=== PATIENT | female | born 1965 | race American Indian/Alaskan Native ===

== ENCOUNTER 2017-01-09 18:40 | Inpatient (IN) | payer BC ==
[2017-01-09 19:52] LABS: Basophils % (Auto) 0.6 % (0.0-1.8); Eosinophils % (Auto) 1.9 % (0.0-4.3); Hematocrit 30.9 % (30.3-42.9); Hemoglobin 10.8 gm/dl (10.1-14.3); Mean Corpuscular HGB Conc 35 % (30-34); Mean Corpuscular Hemoglobin 30 pg (28-32); Mean Corpuscular Volume 85 fl (79-97); Platelet Count 167 K/mm3 (140-440); Red Blood Count 3.64 M/mm3 (3.65-5.03); Red Cell Distribution Width 13.8 % (13.2-15.2); White Blood Count 6.9 K/mm3 (4.5-11.0)
[2017-01-09 19:55] LABS: Bilirubin,Urine NEG (Negative); Blood,Urine NEG (Negative); Ketones,Urine NEG (Negative); Leukocyte Esterase,Urine TR (Negative); Mucus,Urine FEW /HPF; Nitrite,Urine NEG (Negative); Urobilinogen,Urine < 2.0 mg/dL (<2.0)
[2017-01-09 20:06] LABS: BUN/Creatinine Ratio 17.85; Calcium 9.3 mg/dL (8.4-10.2); Chloride 97.1 mmol/L (98-107); Potassium 4.1 mmol/L (3.6-5.0)
--- NOTE | 2017-01-10 07:26 | Emergency Department Report ---
ED General Adult HPI - General Chief complaint: Wound/Laceration Stated complaint: RT FOOT SWOLLEN DIABETIC TYPE 2 Time Seen by Provider: 01/10/17 07:08 Source: patient Mode of arrival: Ambulatory Limitations: No Limitations - History of Present Illness Initial comments: Patient states that she has been having problems with her right fifth toe for 1 day. She tells me she is distraught with the overnight weight. She states that she will not be admitted to this hospital because of that. I apologized to her for the wait. Apparently she does not have a doctor in the area. She is an insulin-dependent diabetic and has recently moved here. She states that she has bumped her right great toe had an x-ray and determined that that was not broken. Both her great toes appear to have some cuticle all or nail work. The left great toe has the nail removed and the right has some ingrown area apparently worked on. Her current problem involves her left small toe only. She denies fever or chills. She denies purulent drainage or fever or chills. She's had no trauma to that toe. -: Gradual, hour(s) Location: left, lower extremity Radiation: non-radiation Quality: aching Consistency: intermittent Improves with: none Worsens with: none Associated Symptoms: denies other symptoms - Related Data Previous Rx's Medication Instructions Recorded Last Taken Type Clindamycin [Clindamycin CAP] 300 mg PO Q8H #20 cap 01/10/17 Unknown Rx Sulfamethoxazole/Trimethoprim 1 each PO BID #14 tablet 01/10/17 Unknown Rx [Bactrim DS TAB] Allergies Allergy/AdvReac Type Severity Reaction Status Date / Time Penicillins Allergy Anaphylaxis Verified 01/09/17 19:07 ED Review of Systems ROS: Stated complaint: RT FOOT SWOLLEN DIABETIC TYPE 2 Other details as noted in HPI Constitutional: denies: chills, fever Eyes: denies: eye pain, eye discharge, vision change ENT: denies: ear pain, throat pain Respiratory: denies: cough, shortness of breath, wheezing Cardiovascular: denies: chest pain, palpitations Endocrine: no symptoms reported Gastrointestinal: denies: abdominal pain, nausea, diarrhea Genitourinary: denies: urgency, dysuria, discharge Musculoskeletal: as per HPI. denies: back pain, joint swelling, arthralgia Skin: denies: rash, lesions Neurological: denies: headache, weakness, paresthesias Psychiatric: denies: anxiety, depression Hematological/Lymphatic: denies: easy bleeding, easy bruising ED Past Medical Hx - Past Medical History Hx Hypertension: Yes Hx Diabetes: Yes (type 2) Additional medical history: cervical cancer - Surgical History Past Surgical History?: No Additional Surgical History: leap proceedure - Social History Smoking Status: Never Smoker Substance Use Type: None - Medications Home Medications: Home Medications Medication Instructions Recorded Confirmed Last Taken Type Clindamycin [Clindamycin CAP] 300 mg PO Q8H #20 cap 01/10/17 Unknown Rx Sulfamethoxazole/Trimethoprim 1 each PO BID #14 tablet 01/10/17 Unknown Rx [Bactrim DS TAB] ED Physical Exam - General Limitations: No Limitations General appearance: alert, in no apparent distress - Head Head exam: Present: atraumatic, normocephalic - Eye Eye exam: Present: normal appearance - ENT ENT exam: Present: normal exam, mucous membranes moist - Neck Neck exam: Present: normal inspection - Respiratory Respiratory exam: Present: normal lung sounds bilaterally. Absent: respiratory distress - Cardiovascular Cardiovascular Exam: Present: regular rate, normal rhythm. Absent: systolic murmur, diastolic murmur, rubs, gallop - GI/Abdominal GI/Abdominal exam: Present: soft, normal bowel sounds. Absent: distended, tenderness, guarding, rebound - Extremities Exam Extremities exam: Present: normal inspection - Back Exam Back exam: Present: normal inspection - Neurological Exam Neurological exam: Present: alert, oriented X3, CN II-XII intact. Absent: motor sensory deficit (grossly toe sensation not tested) - Psychiatric Psychiatric exam: Present: agitated, anxious - Skin Skin exam: Present: other (there is evidence of a diabetic toe infection with some warmth and mild edema of the left foot. There is no juno gangrene. The great toe of the left foot has an avulsed nail and does not appear infected. The medial aspect of the great toe of the right foot has been trimmed. This does not look infected either.). Absent: rash ED Course Vital Signs 01/09/17 19:08 Temperature 98.4 F Pulse Rate 78 Respiratory 16 Rate Blood Pressure 154/88 O2 Sat by Pulse 100 Oximetry - Reevaluation(s) Reevaluation #1: I informed the patient that we would prefer to admit her to the hospital for treatment of a diabetic foot infection with IV antibiotics. She has declined this. She knows that her infection may get worse or even become life- threatening. She is mentally competent to sign out AMA. I will give her a prescription for Bactrim and clindamycin as she is penicillin allergic. 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 01/10/17 07:46 01/10/17 07:50 ED Medical Decision Making - Lab Data Result diagrams: 01/09/17 19:30 01/09/17 19:30 Laboratory Results - last 24 hr 01/09/17 01/09/17 01/09/17 19:18 19:20 19:30 WBC 6.9 RBC 3.64 L Hgb 10.8 Hct 30.9 MCV 85 MCH 30 MCHC 35 H RDW 13.8 Plt Count 167 Lymph % (Auto) 24.3 Eddy % (Auto) 7.9 H Eos % (Auto) 1.9 Baso % (Auto) 0.6 Lymph # 1.7 Eddy # 0.5 Eos # 0.1 Baso # 0.0 Seg Neutrophils % 65.3 Seg Neutrophils # 4.5 VBG pH Sodium Potassium Chloride Carbon Dioxide Anion Gap BUN Creatinine Estimated GFR BUN/Creatinine Ratio Glucose POC Glucose 237 H Calcium Urine Color Yellow Urine Turbidity Clear Urine pH 5.0 Ur Specific [place] 1.018 Urine Protein 100 mg/dl Urine Glucose (UA) >=500 Urine Ketones Neg Urine Blood Neg Urine Nitrite Neg Urine Bilirubin Neg Urine Urobilinogen < 2.0 Ur Leukocyte Esterase Tr Urine WBC (Auto) 6.0 Urine RBC (Auto) 4.0 U Epithel Cells (Auto) 6.0 Urine Mucus Few 01/09/17 01/09/17 01/10/17 19:30 19:30 04:36 WBC RBC Hgb Hct MCV MCH MCHC RDW Plt Count Lymph % (Auto) Eddy % (Auto) Eos % (Auto) Baso % (Auto) Lymph # Eddy # Eos # Baso # Seg Neutrophils % Seg Neutrophils # VBG pH 7.312 L Sodium 138 Potassium 4.1 Chloride 97.1 L Carbon Dioxide 26 Anion Gap 19 BUN 25 H Creatinine 1.4 H Estimated GFR 40 BUN/Creatinine Ratio 17.85 Glucose 248 H POC Glucose 250 H Calcium 9.3 Urine Color Urine Turbidity Urine pH Ur Specific [place] Urine Protein Urine Glucose (UA) Urine Ketones Urine Blood Urine Nitrite Urine Bilirubin Urine Urobilinogen Ur Leukocyte Esterase Urine WBC (Auto) Urine RBC (Auto) U Epithel Cells (Auto) Urine Mucus Critical care attestation.: If time is entered above; I have spent that time in minutes in the direct care of this critically ill patient, excluding procedure time. ED Disposition Clinical Impression: Diabetic infection of left foot, Renal insufficiency Disposition: TO HOME OR SELFCARE Is pt being admited?: No Does the pt Need Aspirin: No Condition: Stable Instructions: Diabetes Mellitus Type 2 in Adults (ED), Impaired Kidney Function (ED) Additional Instructions: I have recommended admission to the hospital for antibiotics. This is safest treatment for a diabetic foot infection. I will give you an oral antibiotics since you have declined admission. It is possible this infection could become life-threatening and close follow-up is surely required. Her kidney function is a bit slow to. That needs to be monitored. See referral physicians. Prescriptions: Clindamycin [Clindamycin CAP] 300 mg PO Q8H #20 cap Sulfamethoxazole/Trimethoprim [Bactrim DS TAB] 1 each PO BID #14 tablet Referrals: MEDARDO DE LA GARZA MD [Staff Physician] - 3-5 Days PRIMARY CAREMD [Primary Care Provider] - 24 Hours ALECIA MCDANIELS JR, MD [Staff Physician] - 24 Hours
[2017-01-10] MEDS: VANCOMYCIN/NS 1 GM/250 ML 1 GM/250 ML BAG IV SCH ×2 (08:38→22:13)
[2017-01-10] MEDS ORDERED: TYLENOL PO PRN (09:00)
[2017-01-10] MEDS ORDERED: VANCOMYCIN PHARMACY TO DOSE IV SCH (09:00)
--- NOTE | 2017-01-10 09:07 | History and Physical Report ---
History of Present Illness Date of examination: 01/10/17 Date of admission: 01/10/17 Chief complaint: Right fifth toe infection and foot swelling History of present illness: Patient is a 51-year-old female with past medical history of diabetes, diabetic neuropathy, hypertension who presents to the hospital with complaints of intermittent fever for the past 5 days initially started on Wednesday resolved on but now with right fifth toe swelling and erythema and drainage. The patient reports that on Wednesday which is 5 days prior to admission she began to sense to have foot was swollen while at work she had noted fevers and at home she documented a temperature of 102. The following that a fever was gone but she noted that on pressing on her Toe dose fluid being expressed. The next day she experienced loss of of the skin with serosanguineous fluid also expressed, with a sensation of her toe being stuck to the bed. She tried multiple times to use hydrogen peroxide to clean and keep the wound clean but considering the increased drainage and edema she presented to the hospital for follow-up management. Her blood sugar she recommends has always been unable to 270s normally. She was initially on metformin but this was discontinued when her hemoglobin A1c went above the last, she recalls is 9. She reports compliance with all her medications. She Denies any nausea vomiting or blurry vision. He reports pain to the foot area which she rates 5/10 in intensity worse with touch. ROS Constitutional: Reports fever, fatigue but no weight loss. Skin: Reports ulceration of right fifth toe. Eyes: No recent vision problems or eye pain. ENT: No congestion, ear pain, or sore throat. Endocrine: No thyroid problems. Cardiovascular: No chest pain. Respiratory: No cough, shortness of breath, congestion, or wheezing. Gastrointestinal: No abdominal pain, nausea, vomiting, or diarrhea. Genitourinary: No dysuria. Musculoskeletal: No joint swelling. Neurologic: No seizures. Hematologic: No unusual bruising or bleeding. Psychiatric: No psychiatric problems, hallucinations or depression. All other systems reviewed and otherwise negative. Past History Past Medical History: cancer (cervical), diabetes, hypertension Past Surgical History: Other (LEEP procedure. Vicryl cancer) Social history: no significant social history, full code Family history: no significant family history, diabetes Medications and Allergies Allergies Allergy/AdvReac Type Severity Reaction Status Date / Time Penicillins Allergy Anaphylaxis Verified 01/09/17 19:07 Home Medications Medication Instructions Recorded Confirmed Last Taken Type Clindamycin [Clindamycin CAP] 300 mg PO Q8H #20 cap 01/10/17 Unknown Rx Sulfamethoxazole/Trimethoprim 1 each PO BID #14 tablet 01/10/17 Unknown Rx [Bactrim DS TAB] Active Meds: Active Medications Acetaminophen (Tylenol) 650 mg PO Q4H PRN PRN Reason: Pain MILD(1-3)/Fever >100.5/MIGUEL Bisacodyl (Dulcolax) 10 mg GA QDAY PRN PRN Reason: Constipation unrelieved by [facility] Dextrose (D50w (25gm)) 50 ml IV PRN PRN PRN Reason: Hypoglycemia Gabapentin (Neurontin) 100 mg PO QHS SHELLY Cefepime HCl (Maxipime/Ns 1 Gm/100 Ml) 1 gm in 100 mls @ 200 mls/hr IV Q8HR SHELLY PRN Reason: Protocol Vancomycin HCl (Vancomycin/Ns 1 Gm/250 Ml) 1 gm in 250 mls @ 166.667 mls/hr IV Q12H [facility] Last Admin: 01/10/17 08:38 Dose: 166.667 mls/hr Insulin Aspart (Novolog) 0 units SUB-Q AC SHELLY PRN Reason: Protocol Insulin Human Isoph/Insulin Regular (Novolin 70/30) 20 unit SUB-Q BIDDIAB SHELLY Labetalol HCl (Normodyne) 100 mg PO BID SHELLY Lisinopril (Zestril) 40 mg PO DAILY SHELLY Magnesium Hydroxide (Milk Of Magnesia) 30 ml PO Q4H PRN PRN Reason: Constipation Morphine Sulfate (Morphine) 2 mg IV Q4H PRN PRN Reason: Pain, Moderate (4-6) Ondansetron HCl (Zofran) 4 mg IV Q8H PRN PRN Reason: N/V unrelieved by Reglan Vancomycin HCl (Vancomycin Pharmacy To Dose) 1 each IV PKCONSULT SHELLY PRN Reason: Protocol Exam - Physical Exam Narrative exam: VITAL SIGNS: Reviewed. GENERAL: The patient appeared well nourished and normally developed. Vital signs as documented. HEAD: No signs of head trauma. EYES: Pupils are equal. Extraocular motions intact. EARS: Hearing grossly intact. MOUTH: Oropharynx is normal. NECK: No adenopathy, no JVD. CHEST: Chest with clear breath sounds bilaterally. No wheezes, rales, or rhonchi. CARDIAC: Regular rate and rhythm. S1 and S2, without murmurs, gallops, or rubs. VASCULAR: 2+ pitting edema right foot. Peripheral pulses normal and equal in all extremities. ABDOMEN: Soft, without detectable tenderness. No sign of distention. No rebound or guarding, and no masses palpated. Bowel Sounds normal. MUSCULOSKELETAL: Good range of motion of all major joints. Extremities without clubbing, cyanosis. 2+ Edema Right Foot. NEUROLOGIC EXAM: Alert and oriented x 3. No focal sensory or strength deficits. Speech normal. Follows commands. PSYCHIATRIC: Mood normal. SKIN: Diabetic toe infection with warmth and edema of the right foot, great toe of the right foot is some false. Left toenail with excoriations.. - Constitutional Vitals: Temp Pulse Resp BP Pulse Ox 98.4 F 78 16 154/88 100 01/09/17 19:08 01/09/17 19:08 01/09/17 19:08 01/09/17 19:08 01/09/17 19:08 Results - Labs CBC & Chem 7: 01/09/17 19:30 01/09/17 19:30 Labs: Laboratory Last Values WBC 6.9 K/mm3 (4.5-11.0) 01/09/17 19:30 RBC 3.64 M/mm3 (3.65-5.03) L 01/09/17 19:30 Hgb 10.8 gm/dl (10.1-14.3) 01/09/17 19:30 Hct 30.9 % (30.3-42.9) 01/09/17 19:30 MCV 85 fl (79-97) 01/09/17 19:30 MCH 30 pg (28-32) 01/09/17 19:30 MCHC 35 % (30-34) H 01/09/17 19:30 RDW 13.8 % (13.2-15.2) 01/09/17 19:30 Plt Count 167 K/mm3 (140-440) 01/09/17 19:30 Lymph % (Auto) 24.3 % (13.4-35.0) 01/09/17 19:30 Hart % (Auto) 7.9 % (0.0-7.3) H 01/09/17 19:30 Eos % (Auto) 1.9 % (0.0-4.3) 01/09/17 19:30 Baso % (Auto) 0.6 % (0.0-1.8) 01/09/17 19:30 Lymph # 1.7 K/mm3 (1.2-5.4) 01/09/17 19:30 Hart # 0.5 K/mm3 (0.0-0.8) 01/09/17 19:30 Eos # 0.1 K/mm3 (0.0-0.4) 01/09/17 19:30 Baso # 0.0 K/mm3 (0.0-0.1) 01/09/17 19:30 Seg Neutrophils % 65.3 % (40.0-70.0) 01/09/17 19:30 Seg Neutrophils # 4.5 K/mm3 (1.8-7.7) 01/09/17 19:30 VBG pH 7.312 (7.320-7.420) L 01/09/17 19:30 Sodium 138 mmol/L (137-145) 01/09/17 19:30 Potassium 4.1 mmol/L (3.6-5.0) 01/09/17 19:30 Chloride 97.1 mmol/L (98-107) L 01/09/17 19:30 Carbon Dioxide 26 mmol/L (22-30) 01/09/17 19:30 Anion Gap 19 mmol/L 01/09/17 19:30 BUN 25 mg/dL (7-17) H 01/09/17 19:30 Creatinine 1.4 mg/dL (0.7-1.2) H 01/09/17 19:30 Estimated GFR 40 ml/min 01/09/17 19:30 BUN/Creatinine Ratio 17.85 % 01/09/17 19:30 Glucose 248 mg/dL (65-100) H 01/09/17 19:30 POC Glucose 250 (70-105) H 01/10/17 04:36 Calcium 9.3 mg/dL (8.4-10.2) 01/09/17 19:30 Urine Color Yellow (Yellow) 01/09/17 19:20 Urine Turbidity Clear (Clear) 01/09/17 19:20 Urine pH 5.0 (5.0-7.0) 01/09/17 19:20 Ur Specific [place] 1.018 (1.003-1.030) 01/09/17 19:20 Urine Protein 100 mg/dl mg/dL (Negative) 01/09/17 19:20 Urine Glucose (UA) >=500 mg/dL (Negative) 01/09/17 19:20 Urine Ketones Neg mg/dL (Negative) 01/09/17 19:20 Urine Blood Neg (Negative) 01/09/17 19:20 Urine Nitrite Neg (Negative) 01/09/17 19:20 Urine Bilirubin Neg (Negative) 01/09/17 19:20 Urine Urobilinogen < 2.0 mg/dL (<2.0) 01/09/17 19:20 Ur Leukocyte Esterase Tr (Negative) 01/09/17 19:20 Urine WBC (Auto) 6.0 /HPF (0.0-6.0) 01/09/17 19:20 Urine RBC (Auto) 4.0 /HPF (0.0-6.0) 01/09/17 19:20 U Epithel Cells (Auto) 6.0 /HPF (0-13.0) 01/09/17 19:20 Urine Mucus Few /HPF 01/09/17 19:20 - Imaging and Cardiology Imaging and Cardiology: X-ray of the foot reviewed reports pending. Assessment and Plan Assessment and plan: Patient is a 51-year-old female with past medical history of diabetes, diabetic neuropathy, hypertension who presents to the hospital with complaints of intermittent fever for the past 5 days with right fifth toe diabetic wound infection. Also known to have a baseline blood sugar in the 260 disease Diabetic foot infection Right lower ext cellulitis Sepsis secondary to above- Pt reports fever of 102 at home Hypertension Diabetic Nephropathy Uncontrolled DM with Hyperglycemia WALT possible secondary to ATN, Diabetic Nephropathy Plan * Supportive care, IV fluids * Continue Empiric Abx With Cefepime and Vancomycin. Monitor Vancomycin trough * Wound care and culture * Urinalysis, check for proteinuria * Monitor BMP * Continue Lisinopril and labetalol, Gabapentin. Will discontinue Lisinopril if Creatnin worsens. * Pain control. * Patient on discharge will definitely need better diabetic management. Also advised a podiatry evaluation for shoe modifications. * DVT and GI prophylaxis * Plan of care discussed with the patient in detail Advance Directives: Yes Plan of care discussed with patient/family: Yes
[2017-01-10] MEDS ORDERED: ZESTRIL ONE (09:31)
[2017-01-10] MEDS ORDERED: NORMODYNE ONE (09:31)
[2017-01-10] MEDS: ZESTRIL PO SCH (09:33)
[2017-01-10] MEDS: NORMODYNE PO SCH ×2 (09:33→22:12)
--- NOTE | 2017-01-10 09:53 | XRay Report ---
RIGHT FOOT, 2 VIEWS History: Pain and ulceration on fifth toe. Findings: No definite soft tissue ulceration is appreciated on x-ray. No soft tissue gas or foreign body. The bony structures are intact. Minimal degenerative changes are noted in the midfoot. Moderate plantar spur. Impression: Unremarkable exam.
[2017-01-10] MEDS ORDERED: MILK OF MAGNESIA PO PRN (10:00)
[2017-01-10] MEDS ORDERED: D50W (25GM) IV PRN (10:00)
[2017-01-10] MEDS ORDERED: ZOFRAN IV PRN (10:00)
[2017-01-10] MEDS ORDERED: MORPHINE IV PRN (10:00)
[2017-01-10] MEDS ORDERED: DULCOLAX PR PRN (10:00)
[2017-01-10] MEDS ORDERED: NACL 0.9% 1000 ML 1,000 ML IV SCH (10:00)
[2017-01-10] MEDS: MAXIPIME/NS 1 GM/100 ML 1 GM/100 ML BAG IV SCH ×3 (11:12→22:12)
[2017-01-10] MEDS: NOVOLOG SUB-Q SCH ×2 (12:39→17:52)
[2017-01-10] MEDS ORDERED: BENADRYL IV PRN (19:37)
[2017-01-10] MEDS ORDERED: NEURONTIN PO SCH (22:00)
[2017-01-10] MEDS ORDERED: APRESOLINE IV PRN (22:17)
--- NOTE | 2017-01-11 03:48 | Admit Criteria Form ---
Admission Criteria Documentation: CELLULITIS Clinical Indications for Admission to Inpatient Care (Place 'X' for any and all applicable criteria): Admission is indicated for ANY ONE of the following(1)(2)(3)(4)(5): [ ]I. Limb-threatening infection [X ]II. High-risk comorbid condition as indicated by ANY ONE of the following: [X ]a) Uncontrolled diabetes (eg, HbA1c greater than 10% (0.1)) [ ]b) Cirrhosis [ ]c) Neutropenia [ ]d) Asplenia [ ]e) Immunosuppression [ ]f) Symptomatic heart failure [ ]III. Failure of outpatient therapy as indicated by ALL of the following: [ ]a) Progression or no improvement after adequate trial (minimum of 48 hours, with longer period for stable lower extremity infection) [ ]b) Adequate antibiotic regimen as indicated by use of ANY ONE of the following: [ ]i) First-generation cephalosporin (e.g., cephalexin) [ ]ii) Antistaphylococcal penicillin (e.g., dicloxacillin) [ ]iii) Penicillin-allergic patient regimen (clindamycin, extended-spectrum fluoroquinolone, or doxycycline) [ ]iv) Resistant organism (eg, methicillin-resistant Staphylococcus aureus) regimen (6) [ ]c) Outpatient intravenous therapy regimen is not appropriate due to ANY ONE of the following. (7)(8)(9)(10): [ ]i) It was tried and was not successful (eg, progression of infection). [ ]ii) It is not available or cannot be arranged in a clinically appropriate time frame (e.g., the next day). [ ]iii) Clinical presentation (eg, acuity of infection, rapidity of progression, confirmed or suspected bacteremia) is judged to require ALL of the following: [ ]1) Immediate initiation of intravenous therapy ( eg, cannot wait for next day) [ ]2) Intensity of patient monitoring and observation (eg, vital sign measurement, checks for infection progression) that cannot be provided at other than inpatient level of care [ ]IV. Mental status changes [ ]V. Bacteremia [ ]. Hemodynamic instability [ ]VII. Suspected necrotizing soft tissue infection (e.g., gas in tissue)(11)( 12) [ ]VIII. Orbital infection (13)(14) [ ]IX. Associated surgical procedure (e.g., abscess drainage, debridement) not amenable to outpatient, emergency department, or observation care [ ]X. Cutaneous gangrene [ ]XI. High fever (temperature greater than 39.5 degrees C (103.1 degrees F) (oral)) not responsive to outpatient, emergency department, or observation care therapy [ ]XIII. Inpatient admission required rather than observation care (Also use Cellulitis: Observation Care as appropriate) because of ANY ONE of the following : [ ]a) Periorbital or perineal infection that is severe or worsening [ ]b) Severe pain requiring acute inpatient management [ ]c) IV fluid to replace significant ongoing (e.g., for over 24 hours) losses (greater than 3L/m2 per day) [ ]d) Compartment syndrome monitoring (17) [ ]e) Strict or protective (eg, laminar flow) isolation [ ]f) Urgent debridement or skin grafting [ ]g) Bone or joint debridement [ ]h) Immediate inpatient surgery [ ]i) Other condition, treatment or monitoring requiring inpatient admission Extended stay beyond goal length of stay may be needed for (1)(18): [ ]a) Necrotizing soft tissue infection or fasciitis [ ]b) Gram-negative infection [ ]c) Methicillin-resistant Staphylococcal aureus (MRSA) infection [ ]d) Peripheral venous insufficiency with cellulitis [ ]e) Extensive edema [ ]f) Sepsis or continued Hemodynamic instability [ ]g) Continued high fever or mental status change [ ]h) Bacteremia [ ]i) Active serious comorbid conditions ( eg, heart failure, renal insufficiency) The original [employer] content created by [email or web address] has been revised. The portions of the content which have been revised are identified through the use of italic text or in bold, and [facility] has neither reviewed nor approved the modified material. All other unmodified content is copyright [facility] Please see references footnoted in the original [facility] [employer] edition 2016 Admission Criteria Met: Yes
[2017-01-11] MEDS: MAXIPIME/NS 1 GM/100 ML 1 GM/100 ML BAG IV SCH ×2 (05:38→16:41)
[2017-01-11 06:40] LABS: Basophils % (Auto) 0.8 % (0.0-1.8); Eosinophils % (Auto) 3.8 % (0.0-4.3); Hematocrit 27.6 % (30.3-42.9); Hemoglobin 9.4 gm/dl (10.1-14.3); Mean Corpuscular HGB Conc 34 % (30-34); Mean Corpuscular Hemoglobin 29 pg (28-32); Mean Corpuscular Volume 86 fl (79-97); Platelet Count 143 K/mm3 (140-440); Red Blood Count 3.22 M/mm3 (3.65-5.03); Red Cell Distribution Width 13.5 % (13.2-15.2)
[2017-01-11 06:55] LABS: Anion Gap 17 mmol/L; Blood Urea Nitrogen 21 mg/dL (7-17); Calcium 8.6 mg/dL (8.4-10.2); Carbon Dioxide 25 mmol/L (22-30); Chloride 107.4 mmol/L (98-107); Glucose 167 mg/dL (65-100); Potassium 4.2 mmol/L (3.6-5.0); Sodium 145 mmol/L (137-145)
--- NOTE | 2017-01-11 09:35 | Discharge Summary ---
Providers - Providers Date of Admission: 01/10/17 08:07 Date of discharge: 01/11/17 Attending physician: GENE HENSLEY MD 01/10/17 08:57 Consult to Dietitian/Nutrition [CONS] Routine Physician Instructions: Reason For Exam: Reason for Consult: Diet education 01/10/17 08:58 Consult to Wound/ET Nurse [CONS] Routine Reason For Exam: wound eval Primary care physician: SHIELD INSTALLER Hospitalization Reason for admission: diabetic foot infection Condition: Stable Hospital course: Patient is a 51-year-old female with past medical history of diabetes, diabetic neuropathy, hypertension who presents to the hospital with complaints of intermittent fever for the past 5 days with right fifth toe diabetic wound infection. Also known to have a baseline blood sugar in the 260s, patient was started on vancomycin and Zosyn with no further fever or elevated leukocytosis noted hemoglobin A1c did come back to 10.1 week and advised the patient better control of blood glucose target range of 160. She'll be followed at the [facility]. She was seen by wound care was no further indication for debridement. An ultrasound of the extremity did reveal although I do not understand chronicity of this I feel this patient should be treated as she does have lower extremity swelling. We'll set him up all questions twice a day and she is to follow with vascular surgery as outpatient. We did also discuss further diabetic management and also encouraged GI evaluation for screening colonoscopy. Additionally this time is stable Discharge diagnosis Diabetic foot infection Chronic Nonocclusive right lower extremity DVT Right lower ext cellulitis Sepsis secondary to above- Pt reports fever of 102 at home Hypertension urgency Diabetic Nephropathy Uncontrolled DM with Hyperglycemia WALT possible secondary to ATN, Diabetic Nephropathy Disposition: DC- TO HOME OR SELFCARE Time spent for discharge: 35 mins Core Measure Documentation - Palliative Care Palliative Care/ Comfort Measures: Not Applicable - Core Measures Any of the following diagnoses?: DVT/PE - VTE Discharge Requirements Deep Vein Thrombosis/Pulmonary Embolism Present on Admission: Yes Has pt received <5 days of overlap therapy or INR<2.0: No (criteria for overlap therapy at discharge: on overlap therapy for less than 5 days or INR<2.0) Anticoagulant overlap therapy prescribed at discharge: No Contraindication No Overlap Therapy order at DC: Not Indicated Exam - Physical Exam Narrative exam: VITAL SIGNS: Reviewed. GENERAL: The patient appeared well nourished and normally developed. Vital signs as documented. HEAD: No signs of head trauma. EYES: Pupils are equal. Extraocular motions intact. EARS: Hearing grossly intact. MOUTH: Oropharynx is normal. NECK: No adenopathy, no JVD. CHEST: Chest with clear breath sounds bilaterally. No wheezes, rales, or rhonchi. CARDIAC: Regular rate and rhythm. S1 and S2, without murmurs, gallops, or rubs. VASCULAR: 2+ pitting edema right foot. Peripheral pulses normal and equal in all extremities. ABDOMEN: Soft, without detectable tenderness. No sign of distention. No rebound or guarding, and no masses palpated. Bowel Sounds normal. MUSCULOSKELETAL: Good range of motion of all major joints. Extremities without clubbing, cyanosis. 2+ Edema Right Foot. NEUROLOGIC EXAM: Alert and oriented x 3. No focal sensory or strength deficits. Speech normal. Follows commands. PSYCHIATRIC: Mood normal. SKIN: Diabetic toe infection with warmth and edema of the right foot, nail avulsion right foot. Left toenail with excoriations.. - Constitutional Vitals: Temp Pulse Resp BP Pulse Ox 98.1 F 72 16 187/76 100 01/11/17 07:59 01/11/17 07:59 01/11/17 07:59 01/11/17 07:59 01/11/17 07:59 Plan Activity: advance as tolerated, fall precautions Diet: diabetic Special Instructions: record daily BP diary, record blood sugar diary Additional Instructions: Follow at wound care. Follow with Vascular secondary to Non occlusive DVT Follow up with: ALECIA MCDANIELS JR, MD [Staff Physician] - 24 Hours PRIMARY CARE, [Primary Care Provider] - 24 Hours MEDARDO DE LA GARZA MD [Staff Physician] - 3-5 Days KVNG HANCOCK MD [Staff Physician] - 7 Days Forms: AMA Form Prescriptions: Gabapentin [Neurontin] 100 mg PO QHS #30 capsule Apixaban [Eliquis] 5 mg PO BID 30 Days Clindamycin [Clindamycin CAP] 300 mg PO Q8H #20 cap Insulin NPH/Regular [NovoLIN 70/30] 22 unit SUB-Q BIDDIAB 30 Days Labetalol [Normodyne TAB] 100 mg PO BID #60 tablet Lisinopril [Zestril TAB] 40 mg PO DAILY #30 tablet Sulfamethoxazole/Trimethoprim [Bactrim DS TAB] 1 each PO BID #14 tablet
[2017-01-11] MEDS: NOVOLOG SUB-Q SCH ×3 (09:41→18:14)
[2017-01-11] MEDS: NORMODYNE PO SCH (12:35)
[2017-01-11] MEDS: ZESTRIL PO SCH (12:36)
[2017-01-11] MEDS: VANCOMYCIN/NS 1 GM/250 ML 1 GM/250 ML BAG IV SCH (12:36)
--- NOTE | 2017-01-11 13:46 | Vascular Lab Report ---
Right Lower Extremity Venous Duplex Study: Reason for Exam: Pain and swelling of the right lower extremity. Comments on the Right: Chronic nonocclusive deep venous thrombosis noted in the deep femoral vein. The remaining veins visualized are freely compressible without evidence of internal echogenicity. Spontaneous and phasic flow is present proximally. Comments on the Left: A limited duplex study was done of the proximal veins of the left lower extremity. All veins visualized are freely compressible without evidence of internal echogenicity. Flow is spontaneous and phasic throughout. No evidence of acute or chronic thrombus is seen in any of the vessels visualized. Impression: Chronic deep venous thrombosis in the right lower extremity..
[2017-01-11 16:32] VITALS: BP 167/77
--- NOTE | 2017-01-13 10:27 | Vascular Lab Report ---
RIGHT UPPER EXTREMITY VENOUS DUPLEX: REASON FOR EXAM: Pain and swelling of the right upper extremity COMMENTS ON THE RIGHT: All arm veins visualized are freely compressible without evidence of internal echogenicity. The subclavian and internal jugular veins are free of thrombus. Flow is spontaneous and phasic throughout. COMMENTS ON THE LEFT: The subclavian and internal jugular veins are free of thrombus. IMPRESSION: No evidence of acute or chronic deep venous thrombosis in the right upper extremity.
== END 2017-01-11 18:44 | disposition home or self-care (01) | DRG 871 ==
LOC: ED 18:40 → 3A 01-10 08:07
PROVIDERS: ADMIT Internal Medicine; ATTEND Internal Medicine
PROC: 4A033R1 Measurement of Arterial Saturation, Peripheral, Percutaneous Approach (ICD-10-PCS; principal; 2017-01-09)
DX: A41.9 Sepsis, unspecified organism (principal); N17.0 Acute kidney failure with tubular necrosis; I82.511 Chronic embolism and thrombosis of right femoral vein; L03.115 Cellulitis of right lower limb; E11.69 Type 2 diabetes mellitus with other specified complication; E11.40 Type 2 diabetes mellitus with diabetic neuropathy, unspecified; E11.21 Type 2 diabetes mellitus with diabetic nephropathy; E11.65 Type 2 diabetes mellitus with hyperglycemia; I16.0 Hypertensive urgency; Z88.0 Allergy status to penicillin; Z79.4 Long term (current) use of insulin; Z79.2 Long term (current) use of antibiotics; Z79.899 Other long term (current) drug therapy; Z85.41 Personal history of malignant neoplasm of cervix uteri
CPT/HCPCS: 36415; 80048; 80061; 81001; 82140; 82805; 82962; 83036; 85025; 87086; J0360; J0692; J1200; J1815; J2270; J3370; J7030

== ENCOUNTER 2017-01-18 08:29 | Outpatient (CLI) | payer BC ==
[2017-01-18] MEDS ORDERED: XYLOCAINE TOPICAL 4% TP ONE (09:42)
== END 2017-01-18 08:30 | disposition home or self-care (01) ==
LOC: WOUND 08:29
PROVIDERS: ATTEND Internal Medicine
DX: E11.621 Type 2 diabetes mellitus with foot ulcer (principal); L97.511 Non-pressure chronic ulcer of other part of right foot limited to breakdown of skin; E11.40 Type 2 diabetes mellitus with diabetic neuropathy, unspecified; D50.8 Other iron deficiency anemias; H53.8 Other visual disturbances; F41.9 Anxiety disorder, unspecified; I10 Essential (primary) hypertension
CPT/HCPCS: 11042; G0463

== ENCOUNTER 2017-01-25 08:17 | Outpatient (CLI) | payer BC ==
[2017-01-25] MEDS ORDERED: XYLOCAINE TOPICAL 4% TP ONE (08:31)
== END 2017-01-25 08:18 | disposition home or self-care (01) ==
LOC: WOUND 08:17
PROVIDERS: ATTEND Internal Medicine
DX: E11.621 Type 2 diabetes mellitus with foot ulcer (principal); L97.511 Non-pressure chronic ulcer of other part of right foot limited to breakdown of skin; E11.40 Type 2 diabetes mellitus with diabetic neuropathy, unspecified; D50.8 Other iron deficiency anemias; I10 Essential (primary) hypertension

== ENCOUNTER 2019-03-22 19:54 | Inpatient (IN) | payer BC, OTHER ==
[2019-03-22 20:53] LABS: Basophils % (Auto) 0.3 % (0.0-1.8); Eosinophils # (Auto) 0.1 K/mm3 (0.0-0.4); Eosinophils % (Auto) 2.1 % (0.0-4.3); Hematocrit 30.3 % (30.3-42.9); Hemoglobin 10.6 gm/dl (10.1-14.3); Lymphocytes # (Auto) 0.9 K/mm3 (1.2-5.4); Lymphocytes % (Auto) 15.8 % (13.4-35.0); Mean Corpuscular HGB Conc 35 % (30-34); Mean Corpuscular Volume 84 fl (79-97); Monocytes # (Auto) 0.5 K/mm3 (0.0-0.8); Platelet Count 169 K/mm3 (140-440); Red Blood Count 3.61 M/mm3 (3.65-5.03); Red Cell Distribution Width 12.9 % (13.2-15.2)
[2019-03-22 21:09] LABS: Calcium 8.6 mg/dL (8.4-10.2)
--- NOTE | 2019-03-22 21:35 | XRay Report ---
CHEST 1 VIEW INDICATION / CLINICAL INFORMATION: Chest Pain. COMPARISON: None available. FINDINGS: SUPPORT DEVICES: None. HEART / MEDIASTINUM: Cardiac silhouette is mildly enlarged. Mild pulmonary vascular congestion withou t overt interstitial pulmonary edema noted. There is minimal bibasilar atelectasis. No suggestion of pneumonia or significant pleural effusion. LUNGS / PLEURA: No significant pulmonary or pleural abnormality. No pneumothorax. ADDITIONAL FINDINGS: No significant additional findings. IMPRESSION: 1. Mild cardiomegaly with minimal bibasilar atelectasis and mild pulmonary vascular congestion.. Signer Name: Carol Metcalf MD Signed: 03/22/2019 9:30 PM Workstation Name: [id number]
[2019-03-22] MEDS ORDERED: ZOFRAN IM ONE (22:54)
[2019-03-22] MEDS ORDERED: ZOFRAN ONE (22:58)
--- NOTE | 2019-03-22 23:54 | Emergency Department Report ---
ED General Adult HPI - General Chief complaint: Chest Pain Stated complaint: CHEST PAIN Time Seen by Provider: 03/22/19 21:07 Source: patient, EMS Mode of arrival: Stretcher Limitations: No Limitations - History of Present Illness Initial comments: The Patient presents to the emergency department with a chief complaint of chest pain. Patient has a history of four-vessel bypass 1 year. Patient complains of exertional shortness of breath and chest pain that has been present intermittently for the last 3 weeks. Patient describes the chest pain is p ressure-like and located in the substernal region of her chest. The patient also complains of nausea vomiting or chest pain -: Gradual Location: chest Radiation: non-radiation Severity scale (0 -10): 10 Quality: other (pressure) Consistency: intermittent Improves with: rest Worsens with: movement Associated Symptoms: denies other symptoms Treatments Prior to Arrival: none - Related Data Home Medications Medication Instructions Recorded Confirmed Last Taken Amlodipine Besylate [Norvasc] 10 mg PO DAILY 03/22/19 03/22/19 Unknown Atorvastatin Calcium [Lipitor] 1 tab PO DAILY 03/22/19 03/22/19 Unknown Furosemide [Lasix TAB] 1 tab PO DAILY 03/22/19 03/22/19 Unknown Insulin Glargine [Lantus VIAL] 10 units SQ QHS 03/22/19 03/22/19 Unknown Insulin Lispro [Humalog Kwikpen 200 unit SQ ACHS 03/22/19 03/22/19 Unknown U-200] Metoprolol [Lopressor] 100 mg PO DAILY 03/22/19 03/22/19 Unknown Allergies Allergy/AdvReac Type Severity Reaction Status Date / Time Penicillins Allergy Anaphylaxis Verified 01/09/17 19:07 ED Review of Systems ROS: Stated complaint: CHEST PAIN Other details as noted in HPI Comment: All other systems reviewed and negative Constitutional: denies: chills, fever Eyes: denies: eye pain, eye discharge, vision change ENT: denies: ear pain, throat pain Respiratory: denies: cough, shortness of breath, wheezing Cardiovascular: chest pain, dyspnea on exertion, orthopnea. denies: palpitations Endocrine: no symptoms reported Gastrointestinal: denies: abdominal pain, nausea, diarrhea Genitourinary: denies: urgency, dysuria, discharge Musculoskeletal: denies: back pain, joint swelling, arthralgia Skin: denies: rash, lesions Neurological: denies: headache, weakness, paresthesias Psychiatric: denies: anxiety, depression Hematological/Lymphatic: denies: easy bleeding, easy bruising ED Past Medical Hx - Past Medical History Previous Medical History?: Yes Hx Hypertension: Yes Hx Diabetes: Yes (type 2) Hx Asthma: Yes Additional medical history: cervical cancer - Surgical History Additional Surgical History: leap proceedure - Social History Smoking Status: Never Smoker Substance Use Type: Alcohol - Medications Home Medications: Home Medications Medication Instructions Recorded Confirmed Last Taken Type Amlodipine Besylate [Norvasc] 10 mg PO DAILY 03/22/19 03/22/19 Unknown History Atorvastatin Calcium [Lipitor] 1 tab PO DAILY 03/22/19 03/22/19 Unknown History Furosemide [Lasix TAB] 1 tab PO DAILY 03/22/19 03/22/19 Unknown History Insulin Glargine [Lantus VIAL] 10 units SQ QHS 03/22/19 03/22/19 Unknown History Insulin Lispro [Humalog Kwikpen 200 unit SQ ACHS 03/22/19 03/22/19 Unknown History U-200] Metoprolol [Lopressor] 100 mg PO DAILY 03/22/19 03/22/19 Unknown History ED Physical Exam - General Limitations: No Limitations General appearance: alert, in no apparent distress - Head Head exam: Present: atraumatic, normocephalic - Eye Eye exam: Present: normal appearance, PERRL, EOMI - ENT ENT exam: Present: mucous membranes moist - Neck Neck exam: Present: normal inspection - Respiratory Respiratory exam: Present: normal lung sounds bilaterally. Absent: respiratory distress - Cardiovascular Cardiovascular Exam: Present: regular rate, normal rhythm. Absent: systolic murmur, diastolic murmur, rubs, gallop - GI/Abdominal GI/Abdominal exam: Present: soft, normal bowel sounds. Absent: distended, tenderness - Extremities Exam Extremities exam: Present: normal inspection - Back Exam Back exam: Present: normal inspection - Neurological Exam Neurological exam: Present: alert, oriented X3, CN II-XII intact. Absent: motor sensory deficit - Psychiatric Psychiatric exam: Present: normal affect, normal mood - Skin Skin exam: Present: warm, dry, intact, normal color. Absent: rash ED Course Vital Signs 03/22/19 03/22/19 03/22/19 20:00 20:07 20:45 Temperature 97.6 F Pulse Rate 102 H 99 H 93 H Respiratory 18 22 17 Rate Blood Pressure 163/138 163/138 97/62 O2 Sat by Pulse 99 99 Oximetry 03/22/19 03/22/19 03/22/19 21:00 21:16 21:30 Temperature Pulse Rate 87 82 86 Respiratory 11 L 20 14 Rate Blood Pressure 97/66 133/73 155/72 O2 Sat by Pulse 98 99 100 Oximetry 03/22/19 03/22/19 03/22/19 21:45 22:00 22:16 Temperature Pulse Rate 81 74 83 Respiratory 11 L 12 17 Rate Blood Pressure 115/66 114/64 106/59 O2 Sat by Pulse 88 100 99 Oximetry 03/22/19 03/22/19 22:30 22:46 Temperature Pulse Rate 85 83 Respiratory 18 Rate Blood Pressure 128/86 128/86 O2 Sat by Pulse 99 100 Oximetry ED Medical Decision Making - Lab Data Result diagrams: 03/22/19 20:34 03/22/19 20:34 Lab Results 03/22/19 03/22/19 03/22/19 Range/Units 20:34 20:34 22:40 WBC 6.0 (4.5-11.0) K/mm3 RBC 3.61 L (3.65-5.03) M/mm3 Hgb 10.6 (10.1-14.3) gm/dl Hct 30.3 (30.3-42.9) % MCV 84 (79-97) fl MCH 29 (28-32) pg MCHC 35 H (30-34) % RDW 12.9 L (13.2-15.2) % Plt Count 169 (140-440) K/mm3 Lymph % (Auto) 15.8 (13.4-35.0) % Bennett % (Auto) 9.0 H (0.0-7.3) % Eos % (Auto) 2.1 (0.0-4.3) % Baso % (Auto) 0.3 (0.0-1.8) % Lymph # 0.9 L (1.2-5.4) K/mm3 Bennett # 0.5 (0.0-0.8) K/mm3 Eos # 0.1 (0.0-0.4) K/mm3 Baso # 0.0 (0.0-0.1) K/mm3 Seg Neutrophils % 72.8 H (40.0-70.0) % Seg Neutrophils # 4.3 (1.8-7.7) K/mm3 Sodium 137 (137-145) mmol/L Potassium 3.6 (3.6-5.0) mmol/L Chloride 100.6 (98-107) mmol/L Carbon Dioxide 23 (22-30) mmol/L Anion Gap 17 mmol/L BUN 26 H (7-17) mg/dL Creatinine 1.7 H (0.7-1.2) mg/dL Estimated GFR 38 ml/min BUN/Creatinine Ratio 15 % Glucose 287 H (65-100) mg/dL Calcium 8.6 (8.4-10.2) mg/dL Troponin T 0.016 < 0.010 (0.00-0.029) ng/mL NT-Pro-B Natriuret Pep (0-900) pg/mL 03/22/19 Range/Units 22:40 WBC (4.5-11.0) K/mm3 RBC (3.65-5.03) M/mm3 Hgb (10.1-14.3) gm/dl Hct (30.3-42.9) % MCV (79-97) fl MCH (28-32) pg MCHC (30-34) % RDW (13.2-15.2) % Plt Count (140-440) K/mm3 Lymph % (Auto) (13.4-35.0) % Bennett % (Auto) (0.0-7.3) % Eos % (Auto) (0.0-4.3) % Baso % (Auto) (0.0-1.8) % Lymph # (1.2-5.4) K/mm3 Bennett # (0.0-0.8) K/mm3 Eos # (0.0-0.4) K/mm3 Baso # (0.0-0.1) K/mm3 Seg Neutrophils % (40.0-70.0) % Seg Neutrophils # (1.8-7.7) K/mm3 Sodium (137-145) mmol/L Potassium (3.6-5.0) mmol/L Chloride (98-107) mmol/L Carbon Dioxide (22-30) mmol/L Anion Gap mmol/L BUN (7-17) mg/dL Creatinine (0.7-1.2) mg/dL Estimated GFR ml/min BUN/Creatinine Ratio % Glucose (65-100) mg/dL Calcium (8.4-10.2) mg/dL Troponin T (0.00-0.029) ng/mL NT-Pro-B Natriuret Pep 793.9 (0-900) pg/mL - EKG Data -: EKG Interpreted by Me EKG shows normal: sinus rhythm Rate: normal - EKG Data Interpretation: LVH - Radiology Data Radiology results: report reviewed - Medical Decision Making results discussed with patient Critical care attestation.: If time is entered above; I have spent that time in minutes in the direct care of this critically ill patient, excluding procedure time. ED Disposition Clinical Impression: Chest pain Disposition: DC-09 OP ADMIT IP TO THIS HOSP Is pt being admited?: Yes Does the pt Need Aspirin: Yes Condition: Fair Instructions: Chest Pain (ED)
[2019-03-23] MEDS ORDERED: BABY ASPIRIN PO ONE (00:08)
[2019-03-23] MEDS ORDERED: NITRO-BID 2% TP ONE (00:08)
--- NOTE | 2019-03-23 00:31 | Event Note ---
53-year-old woman with a history of quadruple bypass last year at [place], hypertension diabetes and chronic CAD status post kidney disease due to diabetic nephropathy who presents to the hospital with chest pain x1 week. 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 -Given her presentation which is typical for unstable angina patient is being put on heparin drip, she receiving morphine as needed for pain. If her pain does not improve, she will be put on nitroglycerin drip and transferred to the ICU WALT likely due to vasomotor nephropathy She denies history of chronic kidney disease, nephrology consult, avoid nephrotoxins Hypertension; home meds Diabetes Consistent carbohydrate diet, sliding scale insulin, check A1c DVT prophylaxis; Lovenox
[2019-03-23] MEDS ORDERED: D50W (25GM) Syringe IV PRN (00:32)
[2019-03-23] MEDS ORDERED: TYLENOL PO PRN (00:44)
[2019-03-23] MEDS ORDERED: ZOFRAN IV PRN (00:44)
--- NOTE | 2019-03-23 00:55 | History and Physical Report ---
History of Present Illness Date of examination: 03/23/19 Date of admission: 03/23/2019 Chief complaint: Chest Pain History of present illness: 53-year-old -[place] female with history of hypertension, diabetes, coronary artery disease status post CABG 4 (2018), since [facility] ED with complaints of chest pain, nonproductive cough, nausea and emesis. Patient states that she has been experiencing increase shortness of breath, mild intermittent left sided chest pain and dry non-productive cough for the past 2-3 weeks. Approximately 3-4 days ago her symptoms worsened and patient states she is unable to walk 10-15 feet without becoming short of breath and needed to rest for approximately 15 minutes before resuming activity for a brief interval. Additionally the frequency of her cough has gradually increased. Her chest pain has worsened out with radiation to her back and left upper quadrant. Patient states it feels like someone has placed a tight corset around her waist and its squeezing really tight. Also she takes that the chest pain feels like someone has taken a sharp knife and stabbed her in the chest with radiation to her back. Past History Past Medical History: CAD, diabetes (DM 2, diabetic neuropathy), hypertension, other (cervical cancer) Past Surgical History: CABG (x4 (2018 @ [place])), Other (leap proceedure) Social history: Lives alone Family history: other (heart disease, VA, hypertension, CVA, diabetes, hypertension on both mother and father side of family) Medications and Allergies Allergies Allergy/AdvReac Type Severity Reaction Status Date / Time Penicillins Allergy Anaphylaxis Verified 01/09/17 19:07 Home Medications Medication Instructions Recorded Confirmed Last Taken Type Amlodipine Besylate [Norvasc] 10 mg PO DAILY 03/22/19 03/22/19 Unknown History Atorvastatin Calcium [Lipitor] 1 tab PO DAILY 03/22/19 03/22/19 Unknown History Furosemide [Lasix TAB] 1 tab PO DAILY 03/22/19 03/22/19 Unknown History Insulin Glargine [Lantus VIAL] 10 units SQ QHS 03/22/19 03/22/19 Unknown History Insulin Lispro [Humalog Kwikpen 200 unit SQ ACHS 03/22/19 03/22/19 Unknown History U-200] Metoprolol [Lopressor] 100 mg PO DAILY 03/22/19 03/22/19 Unknown History Active Meds: Active Medications Acetaminophen (Tylenol) 650 mg PO Q4H PRN PRN Reason: Pain MILD(1-3)/Fever >100.5/MIGUEL Dextrose (D50w (25gm) Syringe) 50 ml IV PRN PRN PRN Reason: Hypoglycemia Docusate Sodium (Colace) 100 mg PO BID SHELLY Heparin Sodium (Porcine) (Heparin) 5,000 unit SUB-Q Q12HR SHELLY Hydralazine HCl (Apresoline) 10 mg IV Q4H PRN PRN Reason: BP >160/100 Insulin Human Lispro (Humalog) 0 unit SUB-Q ACHS SHELLY; Protocol Morphine Sulfate (Morphine) 2 mg IV Q4H PRN PRN Reason: Pain, Moderate (4-6) Ondansetron HCl (Zofran) 4 mg IV Q6H PRN PRN Reason: Nausea And Vomiting Sodium Chloride (Sodium Chloride Flush Syringe 10 Ml) 10 ml IV BID SHELLY Sodium Chloride (Sodium Chloride Flush Syringe 10 Ml) 10 ml IV PRN PRN PRN Reason: LINE FLUSH Review of Systems All systems: negative Cardiovascular: chest pain, shortness of breath Respiratory: cough, shortness of breath Gastrointestinal: nausea, vomiting Exam - Physical Exam Narrative exam: Physical exam General appearance: Present: Mild distress, alert and oriented 3, well developed, pleasant, adult -Lithuanian female male - EENT Eyes: Present: PERRL, EOM intact, ENT: hearing intact, normal dentition - Neck Neck: Present: supple, normal ROM - Respiratory Respiratory effort: Slightly labored when talking, on supplemental oxygen Respiratory: CTA - Cardiovascular Heart rate: 93 (bpm) Rhythm: SR, LVH, Heart Sounds: Present: S1, S2 - Extremities Extremities: no ischemia, pulses intact, - Peripheral Assessment Peripheral Pulses: within normal limits - Abdominal General gastrointestinal: Soft, non-tender, normal bowel sounds - Integumentary Integumentary: Present: warm, dry, sternal surgical scar from CABG - Musculoskeletal Musculoskeletal: Able to move all extremities -Neurological Neurological: CN II-XII grossly intact - Psychiatric Psychiatric: cooperative - Constitutional Vitals: Temp Pulse Resp BP Pulse Ox 97.6 F 74 18 114/67 100 03/22/19 20:00 03/23/19 00:30 03/22/19 22:30 03/23/19 00:30 03/23/19 00:30 Results - Labs CBC & Chem 7: 03/22/19 20:34 03/22/19 20:34 Labs: Laboratory Last Values WBC 6.0 K/mm3 (4.5-11.0) 03/22/19 20:34 RBC 3.61 M/mm3 (3.65-5.03) L 03/22/19 20:34 Hgb 10.6 gm/dl (10.1-14.3) 03/22/19 20:34 Hct 30.3 % (30.3-42.9) 03/22/19 20:34 MCV 84 fl (79-97) 03/22/19 20:34 MCH 29 pg (28-32) 03/22/19 20:34 MCHC 35 % (30-34) H 03/22/19 20:34 RDW 12.9 % (13.2-15.2) L 03/22/19 20:34 Plt Count 169 K/mm3 (140-440) 03/22/19 20:34 Lymph % (Auto) 15.8 % (13.4-35.0) 03/22/19 20:34 [place] % (Auto) 9.0 % (0.0-7.3) H 03/22/19 20:34 Eos % (Auto) 2.1 % (0.0-4.3) 03/22/19 20:34 Baso % (Auto) 0.3 % (0.0-1.8) 03/22/19 20:34 Lymph # 0.9 K/mm3 (1.2-5.4) L 03/22/19 20:34 [place] # 0.5 K/mm3 (0.0-0.8) 03/22/19 20:34 Eos # 0.1 K/mm3 (0.0-0.4) 03/22/19 20:34 Baso # 0.0 K/mm3 (0.0-0.1) 03/22/19 20:34 Seg Neutrophils % 72.8 % (40.0-70.0) H 03/22/19 20:34 Seg Neutrophils # 4.3 K/mm3 (1.8-7.7) 03/22/19 20:34 Sodium 137 mmol/L (137-145) 03/22/19 20:34 Potassium 3.6 mmol/L (3.6-5.0) 03/22/19 20:34 Chloride 100.6 mmol/L (98-107) 03/22/19 20:34 Carbon Dioxide 23 mmol/L (22-30) 03/22/19 20:34 Anion Gap 17 mmol/L 03/22/19 20:34 BUN 26 mg/dL (7-17) H 03/22/19 20:34 Creatinine 1.7 mg/dL (0.7-1.2) H 03/22/19 20:34 Estimated GFR 38 ml/min 03/22/19 20:34 BUN/Creatinine Ratio 15 % 03/22/19 20:34 Glucose 287 mg/dL (65-100) H 03/22/19 20:34 Calcium 8.6 mg/dL (8.4-10.2) 03/22/19 20:34 Troponin T < 0.010 ng/mL (0.00-0.029) 03/22/19 22:40 NT-Pro-B Natriuret Pep 793.9 pg/mL (0-900) 03/22/19 22:40 - Imaging and Cardiology Imaging and Cardiology: CXR: FINDINGS: SUPPORT DEVICES: None. HEART / MEDIASTINUM: Cardiac silhouette is mildly enlarged. Mild pulmonary vascular congestion without overt interstitial pulmonary edema noted. There is minimal bibasilar atelectasis. No suggestion of pneumonia or significant pleural effusion. LUNGS / PLEURA: No significant pulmonary or pleural abnormality. No pneumothorax. ADDITIONAL FINDINGS: No significant additional findings. IMPRESSION: 1. Mild cardiomegaly with minimal bibasilar atelectasis and mild pulmonary vascular congestion.. Assessment and Plan Assessment and plan: 53-year-old -Lithuanian female with history of hypertension, diabetes, coronary artery disease status post CABG 4 (2018), since [facility] ED with complaints of chest pain, nonproductive cough, nausea and emesis. Time of my examination patient is sitting up in the stretcher displaying signs of severe discomfort. Initial EKG showed sinus rhythm, ventricular premature complexes, LVH with secondary repolarization abnormalities, ST elevation secondary to LVH. Given patient's current status a second EKG which showed minimal voltage changes. Patient will be started on heparin gtt. D-dimer pending. Acute Chest Pain -Likely unstage angina -CXR shows Mild cardiomegaly with minimal bibasilar atelectasis and mild pulmonary vascular congestion. -Initiate chest pain protocol -Continuous telemetry monitoring -Continue supportive care -Pain mgmt -Troponin negative x 2, will continue to trend -On Statin -Start Heparin gtt -Cardiology consulted recommendations appreciated WALT ?? superimposed CDK -Cr on admission 1.7 -Baseline unknown -Hydrate with IVF -Avoid nephrotoxin agents -Renal dose all meds -Nephrology consulted CAD -S/P CABG x3 at [place] (2018) DM2 -With hyperglycemia -POC BG monitoring -BG on admission 287 -Continue scheduled daily at bedtime Lantus -SSI coverage prn -HgbA1c pending HTN -Monitor BP -Resume home to hypertensive meds DVT PPX -on heparin gtt Advance Directives: No VTE prophylaxis?: Chemical Plan of care discussed with patient/family: Yes
[2019-03-23] MEDS ORDERED: NACL 0.9% 1000 ML 1,000 ML IV SCH (01:00)
[2019-03-23] MEDS ORDERED: REGLAN IV PRN (01:41)
[2019-03-23] MEDS ORDERED: MORPHINE ONE (02:07)
[2019-03-23] MEDS: MORPHINE IV PRN (02:09)
[2019-03-23] MEDS ORDERED: HEPARIN 10,000 UNITS/10 ML IV ONE (02:10)
[2019-03-23] MEDS ORDERED: HEPARIN/ 0.45% NACL-25,000 UNIT/500 ML 25,000 UNIT/500 ML BAG IV SCH (03:00)
[2019-03-23 05:25] LABS: Hematocrit 29.7 % (30.3-42.9); Hemoglobin 10.2 gm/dl (10.1-14.3)
[2019-03-23] MEDS: TESSALON PERLES PO SCH ×3 (06:06→21:45)
[2019-03-23 06:21] LABS: INR 1.16 (0.87-1.13)
[2019-03-23 06:32] LABS: Partial Thromboplastin Time 179.7 Sec. (24.2-36.6)
[2019-03-23] MEDS: LOPRESSOR PO SCH (08:55)
[2019-03-23] MEDS: HumaLOG SUB-Q SCH ×4 (08:56→21:47)
[2019-03-23] MEDS: COLACE PO SCH ×2 (09:00→22:02)
[2019-03-23] MEDS: NORVASC PO SCH (09:00)
[2019-03-23] MEDS: LASIX PO SCH (09:01)
[2019-03-23] MEDS: SODIUM CHLORIDE FLUSH SYRINGE 10 ML IV SCH ×2 (09:01→22:02)
--- NOTE | 2019-03-23 09:54 | Consultation ---
History of Present Illness - Reason for Consult Consult date: 03/23/19 acute renal failure Requesting physician: GIL JEONG - History of Present Illness 53-year-old lady with a history of type 2 diabetes mellitus for at least 19 years, complicated by retinopathy and chronic kidney disease though patient is not sure of what stage of CKD. Patient was admitted on account of left-sided chest pain of 2 weeks duration. Pain is on the left side felt like a corset being tightened around her chest. Associated shortness of breath and decreased exercise tolerance. Patient was unable to walk 10-15 feet without having to stop to rest. Associated nausea, vomiting and dizziness. No diaphoresis. No moist swelling. She admits to cough which has been nonproductive for at least 2-3 weeks. BUN/creatinine found to be elevated at 26/1.7 mg/dL I'm consulted to assist in managing this. Patient denies any voiding difficulties no frequency, urgency, dysuria or hematuria. No use of nonsteroidal anti-inflammatory drugs. No recent exposure to radiocontrast. 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 denies: smoking, prescription drug abuse, IV drug use Family history: CAD (myocardial infarction father, mother of heart disease -she was undergoing heart surgery in intra-op), diabetes (siblings and grandparents), stroke (father had 5 strokes), other (heart disease, [place], hypertension, CVA, diabetes, hypertension on both mother and father side of family) Medications and Allergies Allergies Allergy/AdvReac Type Severity Reaction Status Date / Time Penicillins Allergy Anaphylaxis Verified 01/09/17 19:07 Home Medications Medication Instructions Recorded Confirmed Last Taken Type Amlodipine Besylate [Norvasc] 10 mg PO DAILY 03/22/19 03/22/19 Unknown History Atorvastatin Calcium [Lipitor] 1 tab PO DAILY 03/22/19 03/22/19 Unknown History Furosemide [Lasix TAB] 1 tab PO DAILY 03/22/19 03/22/19 Unknown History Insulin Glargine [Lantus VIAL] 10 units SQ QHS 03/22/19 03/22/19 Unknown History Insulin Lispro [Humalog Kwikpen 200 unit SQ ACHS 03/22/19 03/22/19 Unknown History U-200] Metoprolol [Lopressor] 100 mg PO DAILY 03/22/19 03/22/19 Unknown History Active Meds: Active Medications Acetaminophen (Tylenol) 650 mg PO Q4H PRN PRN Reason: Pain MILD(1-3)/Fever >100.5/MIGUEL Amlodipine Besylate (Norvasc) 10 mg PO DAILY [facility] Last Admin: 03/23/19 09:00 Dose: 10 mg Documented by: Atorvastatin Calcium (Lipitor) 40 mg PO DAILY [facility] Last Admin: 03/23/19 09:01 Dose: 40 mg Documented by: Benzonatate (Tessalon Perles) 100 mg PO Q8HR [facility] Last Admin: 03/23/19 06:06 Dose: Not Given Documented by: Dextrose (D50w (25gm) Syringe) 50 ml IV PRN PRN PRN Reason: Hypoglycemia Docusate Sodium (Colace) 100 mg PO BID [facility] Last Admin: 03/23/19 09:00 Dose: 100 mg Documented by: Furosemide (Lasix) 20 mg PO DAILY [facility] Last Admin: 03/23/19 09:01 Dose: 20 mg Documented by: Hydralazine HCl (Apresoline) 10 mg IV Q4H PRN PRN Reason: BP >160/100 Sodium Chloride (Nacl 0.9% 1000 Ml) 1,000 mls @ 50 mls/hr IV DIRECT [facility] Last Admin: 03/23/19 03:50 Dose: 50 mls/hr Documented by: Heparin Sodium/Sodium Chloride (Heparin/ 0.45% Nacl-25,000 Unit/500 Ml) 25,000 unit in 500 mls @ 20 mls/hr IV TITRATE [facility]; Protocol Last Admin: 03/23/19 03:46 Dose: 1,000 units/hr, 20 mls/hr Documented by: Insulin Glargine (Lantus) 10 units SUB-Q QHS [facility] Insulin Human Lispro (Humalog) 0 unit SUB-Q ACHS [facility]; Protocol Last Admin: 03/23/19 08:56 Dose: 3 unit Documented by: Metoclopramide HCl (Reglan) 5 mg IV Q6H PRN PRN Reason: Nausea And Vomiting Metoprolol Tartrate (Lopressor) 100 mg PO DAILY@0800 [facility] Last Admin: 03/23/19 08:55 Dose: 100 mg Documented by: Morphine Sulfate (Morphine) 2 mg IV Q4H PRN PRN Reason: Pain, Moderate (4-6) Last Admin: 03/23/19 02:09 Dose: 2 mg Documented by: Ondansetron HCl (Zofran) 4 mg IV Q6H PRN PRN Reason: Nausea And Vomiting Sodium Chloride (Sodium Chloride Flush Syringe 10 Ml) 10 ml IV BID [facility] Last Admin: 03/23/19 09:01 Dose: 10 ml Documented by: Sodium Chloride (Sodium Chloride Flush Syringe 10 Ml) 10 ml IV PRN PRN PRN Reason: LINE FLUSH Review of Systems All systems: negative (Constitutional: no fever or chills. No anorexia or weight loss. HEENT: No sore throat or sinus drainage no hearing or vision impairment . Cardiovascular: see history of present illness. Respiratory: See history of present illness. No hemoptysis or wheezing. Gastrointestinal: Admits to nausea and vomiting. Also had diarrhea. No abdominal pain, hematemesis or melena. Genitourinary: No frequency urgency dysuria or hematuria. hematologic: No abnormal bleeding or bruising. Integumentary: Admits to itching but no rash. Neurological: Admits to headache no focal weakness or numbness, no syncope or seizures. Musculoskeletal: Has pain in the right leg and hip no stiffness. Psychiatry: Admits to anxiety and depression) Exam - Vital Signs Vital signs: Vital Signs Temp Pulse Resp BP Pulse Ox 97.6 F 102 H 18 163/138 99 03/22/19 20:00 03/22/19 20:00 03/22/19 20:00 03/22/19 20:00 03/22/19 20:00 - Physical Exam Narrative exam: Middle-aged -Irish female lying in bed in no acute distress HEENT: NCAT, pink oral mucous membrane Neck: Supple, no venous distention CVS: S1S2 RRR with no murmur, rub or gallop Chest: Clear to auscultation but breath sounds diminished in the lower zones Abdomen: Protuberant, soft, nontender, no organomegaly, bowel sounds are present Extremities: No edema, status post left fifth toe amputation Genitourinary deferred Psychiatry flat affect Neuro: Awake, alert no focal deficits Results - Lab Results 03/23/19 03:50 03/22/19 20:34 Most recent lab results Calcium 8.6 mg/dL (8.4-10.2) 03/22/19 20:34 Assessment and Plan - Patient Problems (1) Acute kidney injury Current Visit: Yes Status: Acute Plan to address problem: Acute kidney injury possibly prerenal azotemia secondary to hemodynamic instab ility with elevated blood pressure on presentation which decreased thereafter. Blood pressure is now improved. Get urine studies. Get kidney ultrasound. Follow-up electrolytes and renal function. (2) Chronic kidney disease, stage 3 (moderate) Current Visit: Yes Status: Acute Plan to address problem: Chronic kidney disease presumably secondary to diabetic nephropathy/hypertensive nephrosclerosis. Definitely concerned about diabetic nephropathy especially with the history of diabetic retinopathy (3) Unstable angina Current Visit: Yes Status: Acute Plan to address problem: Radiology has been consulted. Concerned as she states her chest pain is similar to the pain she had when she had the bypass. (4) Type 2 diabetes mellitus with diabetic chronic kidney disease Current Visit: Yes Status: Acute Plan to address problem: Blood sugar management by primary attending (5) Hypertensive chronic kidney disease with stage 1 through stage 4 chronic kidney disease, or unspecified chronic kidney disease Current Visit: Yes Status: Acute Plan to address problem: Follow blood pressure on current medications (6) Anemia in chronic kidney disease (CKD) Current Visit: Yes Status: Acute Plan to address problem: Follow-up hemoglobin. Get anemia profile if hemoglobin decreases less than 10 g/dL.
[2019-03-23] MEDS ORDERED: ATORVASTATIN CALCIUM PO SCH (10:00)
[2019-03-23] MEDS ORDERED: HEPARIN SUB-Q SCH (10:00)
[2019-03-23] MEDS ORDERED: BABY ASPIRIN PO SCH (10:00)
--- NOTE | 2019-03-23 12:17 | Consultation ---
History of Present Illness Consult date: 03/23/19 Consult reason: chest pain History of present illness: This is a 53-year old woman with a history of coronary artery disease status post 4 way bypass grafting at [facility] in 2018. Her primary otm consultant is Dr Vazquez at [facility]. Patient presented with complaints of chest pain, admitted for further evaluation. Patient describes chest pain as tightness underneath her breast that travels to her back. Symptoms has been intermittent for several days associated with coughs and shortness of breath. Chest x-ray reports mild cardiomegaly but no interstitial edema. Cycled troponin are normal. A 12 lead ECG is sinus rhythm with repolarization abnormalities. Past History Past Medical History: CAD, diabetes (DM 2, diabetic neuropathy and retinopathy), hypertension Past Surgical History: CABG (x4 (2018)) Social history: Lives alone Family history: CAD (myocardial infarction father, mother of heart disease -she was undergoing heart surgery in intra-op), diabetes (siblings and grandparents), stroke (father had 5 strokes), other (heart disease, [place], hypertension, CVA, diabetes, hypertension on both mother and father side of family) Medications and Allergies Allergies Allergy/AdvReac Type Severity Reaction Status Date / Time Penicillins Allergy Anaphylaxis Verified 01/09/17 19:07 Home Medications Medication Instructions Recorded Confirmed Last Taken Type Amlodipine Besylate [Norvasc] 10 mg PO DAILY 03/22/19 03/22/19 Unknown History Atorvastatin Calcium [Lipitor] 1 tab PO DAILY 03/22/19 03/22/19 Unknown History Furosemide [Lasix TAB] 1 tab PO DAILY 03/22/19 03/22/19 Unknown History Insulin Glargine [Lantus VIAL] 10 units SQ QHS 03/22/19 03/22/19 Unknown History Insulin Lispro [Humalog Kwikpen 200 unit SQ ACHS 03/22/19 03/22/19 Unknown History U-200] Metoprolol [Lopressor] 100 mg PO DAILY 03/22/19 03/22/19 Unknown History Active Meds: Active Medications Acetaminophen (Tylenol) 650 mg PO Q4H PRN PRN Reason: Pain MILD(1-3)/Fever >100.5/MIGUEL Amlodipine Besylate (Norvasc) 10 mg PO DAILY [facility] Last Admin: 03/23/19 09:00 Dose: 10 mg Documented by: Atorvastatin Calcium (Lipitor) 40 mg PO DAILY [facility] Last Admin: 03/23/19 09:01 Dose: 40 mg Documented by: Benzonatate (Tessalon Perles) 100 mg PO Q8HR [facility] Last Admin: 03/23/19 06:06 Dose: Not Given Documented by: Dextrose (D50w (25gm) Syringe) 50 ml IV PRN PRN PRN Reason: Hypoglycemia Docusate Sodium (Colace) 100 mg PO BID [facility] Last Admin: 03/23/19 09:00 Dose: 100 mg Documented by: Furosemide (Lasix) 20 mg PO DAILY [facility] Last Admin: 03/23/19 09:01 Dose: 20 mg Documented by: Hydralazine HCl (Apresoline) 10 mg IV Q4H PRN PRN Reason: BP >160/100 Heparin Sodium/Sodium Chloride (Heparin/ 0.45% Nacl-25,000 Unit/500 Ml) 25,000 unit in 500 mls @ 20 mls/hr IV TITRATE [facility]; Protocol Last Titration: 03/23/19 11:30 Dose: 0 units/hr, 0 mls/hr Documented by: Insulin Glargine (Lantus) 10 units SUB-Q QHS [facility] Insulin Human Lispro (Humalog) 0 unit SUB-Q ACHS [facility]; Protocol Last Admin: 03/23/19 08:56 Dose: 3 unit Documented by: Ketorolac Tromethamine (Toradol) 30 mg IV ONCE ONE Stop: 03/23/19 12:31 Ketorolac Tromethamine (Toradol) 15 mg IV Q8HR [facility] Stop: 03/24/19 06:01 Metoclopramide HCl (Reglan) 5 mg IV Q6H PRN PRN Reason: Nausea And Vomiting Metoprolol Tartrate (Lopressor) 100 mg PO DAILY@0800 [facility] Last Admin: 03/23/19 08:55 Dose: 100 mg Documented by: Morphine Sulfate (Morphine) 2 mg IV Q4H PRN PRN Reason: Pain, Moderate (4-6) Last Admin: 03/23/19 02:09 Dose: 2 mg Documented by: Ondansetron HCl (Zofran) 4 mg IV Q6H PRN PRN Reason: Nausea And Vomiting Sodium Chloride (Sodium Chloride Flush Syringe 10 Ml) 10 ml IV BID [facility] Last Admin: 03/23/19 09:01 Dose: 10 ml Documented by: Sodium Chloride (Sodium Chloride Flush Syringe 10 Ml) 10 ml IV PRN PRN PRN Reason: LINE FLUSH Physical Examination Vital Signs Temp Pulse Resp BP Pulse Ox 97.6 F 102 H 18 163/138 99 03/22/19 20:00 03/22/19 20:00 03/22/19 20:00 03/22/19 20:00 03/22/19 20:00 General appearance: no acute distress HEENT: Positive: PERRL Neck: Positive: trachea midline Cardiac: Positive: Reg Rate and Rhythm Lungs: Positive: Normal Breath Sounds Neuro: Positive: Grossly Intact Extremities: Absent: edema Results 03/23/19 03:50 03/22/19 20:34 Coagulation 03/23/19 Range/Units 03:50 PT 14.5 (12.2-14.9) Sec. INR 1.16 H (0.87-1.13) APTT 179.7 H* (24.2-36.6) Sec. CBC 03/22/19 03/23/19 Range/Units 20:34 03:50 WBC 6.0 (4.5-11.0) K/mm3 RBC 3.61 L (3.65-5.03) M/mm3 Hgb 10.6 10.2 (10.1-14.3) gm/dl Hct 30.3 29.7 L (30.3-42.9) % Plt Count 169 148 (140-440) K/mm3 Lymph # 0.9 L (1.2-5.4) K/mm3 [place] # 0.5 (0.0-0.8) K/mm3 Eos # 0.1 (0.0-0.4) K/mm3 Baso # 0.0 (0.0-0.1) K/mm3 Comprehensive Metabolic Panel 03/22/19 Range/Units 20:34 Sodium 137 (137-145) mmol/L Potassium 3.6 (3.6-5.0) mmol/L Chloride 100.6 (98-107) mmol/L Carbon Dioxide 23 (22-30) mmol/L BUN 26 H (7-17) mg/dL Creatinine 1.7 H (0.7-1.2) mg/dL Glucose 287 H (65-100) mg/dL Calcium 8.6 (8.4-10.2) mg/dL Assessment and Plan Chest pain, atypical Acute on chronic renal failure Diabetes Hx of CAD with 4v CABG in 2018 Hypertension
[2019-03-23] MEDS ORDERED: TORADOL IV ONE (13:00)
--- NOTE | 2019-03-23 14:06 | Ultrasound Report ---
ULTRASOUND RENAL INDICATION / CLINICAL INFORMATION: Acute kidney injury. COMPARISON: None available. FINDINGS: RIGHT KIDNEY: Length = 9.5 cm. [normal > 9 cm] - Parenchymal Thickness = 0.8 cm. [normal > 1.5 cm] - Echogenicity: Mildly echogenic diffusely. - Hydronephrosis: None. - Cyst or mass: Subtle rounded structure in the lower pole measuring 1.2 cm, not clearly a cyst and s howing more intermediate echogenicity as compared to a cyst. - Stones: None seen. LEFT KIDNEY: Length = 10.7 cm. [normal > 9 cm] - Parenchymal Thickness = 0.8 cm. [normal > 1.5 cm] - Echogenicity: Mildly echogenic diffusely. - Hydronephrosis: None. - Cyst or mass: No significant abnormality. - Stones: None seen. URINARY BLADDER: Collapsed. FREE FLUID: None. ADDITIONAL FINDINGS: Incidental note made of splenomegaly measuring up to 15 cm. IMPRESSION: 1. Diffusely echogenic kidneys, most commonly seen with medical renal disease. 2. 1.2 cm slightly hypoechoic structure in the lower pole of the right kidney, not clearly a cyst. Re commend pre and postcontrast CT imaging for further evaluation. 3. Splenomegaly. Signer Name: Stanley Keys MD Signed: 03/23/2019 2:02 PM Workstation Name: [id number]
[2019-03-23] MEDS ORDERED: ALUM-MAG HYDROX-SIMETH 200-200-20MG/5ML PO ONE (17:36)
[2019-03-23] MEDS ORDERED: DILAUDID IV ONE (17:36)
--- NOTE | 2019-03-23 17:39 | Event Note ---
Date: 03/23/19 53-year-old female patient with significant past medical history of coronary artery disease status post CABG hypertension diabetes mellitus chronic kidney disease was admitted through emergency room with chest pain/unstable angina Patient seen and evaluated, medical records reviewed Cardiology evaluation and recommendation noted and appreciated Agree with the current management. Monitor the patient clinically and adjust management as needed. Plan of care is reviewed with the patient and the nurse
[2019-03-23] MEDS: TORADOL IV SCH (21:45)
[2019-03-23] MEDS: LANTUS SUB-Q SCH (21:47)
[2019-03-24] MEDS: TESSALON PERLES PO SCH ×3 (06:05→22:31)
[2019-03-24] MEDS: TORADOL IV SCH ×2 (06:06→13:35)
[2019-03-24 06:10] LABS: Basophils % (Auto) 0.5 % (0.0-1.8); Eosinophils # (Auto) 0.2 K/mm3 (0.0-0.4); Eosinophils % (Auto) 3.4 % (0.0-4.3); Hemoglobin 10.4 gm/dl (10.1-14.3); Lymphocytes # (Auto) 0.6 K/mm3 (1.2-5.4); Lymphocytes % (Auto) 12.2 % (13.4-35.0); Mean Corpuscular HGB Conc 35 % (30-34); Mean Corpuscular Volume 85 fl (79-97); Monocytes # (Auto) 0.5 K/mm3 (0.0-0.8); Monocytes % (Auto) 9.1 % (0.0-7.3); Platelet Count 154 K/mm3 (140-440); Red Blood Count 3.55 M/mm3 (3.65-5.03); Red Cell Distribution Width 13.1 % (13.2-15.2)
[2019-03-24 06:15] LABS: Calcium 8.4 mg/dL (8.4-10.2)
[2019-03-24 06:38] LABS: Bacteria,Urine 3+ /HPF (Negative); Bilirubin,Urine NEG (Negative); Blood,Urine SM (Negative); Color,Urine Yellow (Yellow); Mucus,Urine FEW /HPF; Urobilinogen,Urine < 2.0 mg/dL (<2.0)
[2019-03-24 06:45] LABS: Creatinine,Urine 252.2 mg/dL (0.1-20.0)
[2019-03-24] MEDS: HumaLOG SUB-Q SCH ×4 (07:30→22:31)
--- NOTE | 2019-03-24 08:09 | XRay Report ---
CHEST 1 VIEW INDICATION: CP, SOB.per lung scan protocol. COMPARISON: 03/22/2019 FINDINGS: Support devices: None. Heart: Borderline heart size is stable. Previous CABG changes. Lungs/Pleura: Mild left perihilar prominence/infiltration is suggested on today's exam. Early infiltr ate could be considered. The right lung is clear. No pleural effusion or pneumothorax. Additional findings: None. IMPRESSION: Mild left perihilar prominence. Infiltrate versus segmental atelectasis. Signer Name: Vineet Ledesma Jr, MD Signed: 03/24/2019 8:05 AM Workstation Name: [id number]
--- NOTE | 2019-03-24 08:50 | Nuclear Medicine Report ---
VENTILATION PERFUSION PULMONARY SCINTIGRAPHY HISTORY: Chest pain, shortness of breath, tachycardia COMPARISON: 03/24/2019 chest radiograph. TECHNIQUE: Radiopharmaceutical was inhaled. Tc-99m-MAA was then injected. Ventilation and perfusion images were acquired. RADIOPHARMACEUTICAL: 15.3 mCi of Xe-133 inhaled 5.5 mCi of Tc-99m-MAA injected FINDINGS: VENTILATION: No significant air trapping or defect. PERFUSION: No significant segmental or non-segmental defect. Additional Findings: None. IMPRESSION: 1. Low probability for pulmonary embolism. Signer Name: Vineet Ledesma Jr, MD Signed: 03/24/2019 8:46 AM Workstation Name: [id number]
[2019-03-24] MEDS: LOPRESSOR PO SCH (09:15)
[2019-03-24] MEDS: SODIUM CHLORIDE FLUSH SYRINGE 10 ML IV SCH ×2 (09:32→23:19)
[2019-03-24] MEDS: COLACE PO SCH ×2 (09:33→22:31)
[2019-03-24] MEDS: NORVASC PO SCH (09:33)
[2019-03-24] MEDS: LASIX PO SCH (09:33)
--- NOTE | 2019-03-24 10:49 | Progress Note ---
Assessment and Plan Chest pain, musculoskeletal VQ scan reports a low probability for PE repeat CXR suggestive of left infiltrate Chronic renal failure Diabetes Hx of CAD with 4v CABG in 2018 Hypertension Continue medical therapy for coronary artery disease. Subjective Date of service: 03/24/19 Interval history: Patient reports intermittent chest pain, shortness of breath with coughs. No distress noted. Objective Vital Signs Temp Pulse Resp BP Pulse Ox 03/24/19 09:33 82 145/78 03/24/19 09:15 82 145/78 03/24/19 08:01 98.1 F 18 137/78 03/24/19 06:36 18 03/24/19 06:06 18 03/24/19 04:15 98.0 F 86 18 170/82 88 03/23/19 23:35 98.3 F 73 16 151/77 95 03/23/19 21:45 18 03/23/19 19:05 97.9 F 69 12 138/74 97 03/23/19 16:31 97.6 F 60 18 116/67 96 03/23/19 11:40 98.3 F 63 18 129/68 99 - Physical Examination General: No Apparent Distress HEENT: Positive: PERRL Neck: Positive: trachea midline Cardiac: Positive: Reg Rate and Rhythm Lungs: Positive: Normal Breath Sounds Neuro: Positive: Grossly Intact Extremities: Absent: edema - Labs and Meds Coagulation 03/23/19 Range/Units 03:50 PT 14.5 (12.2-14.9) Sec. INR 1.16 H (0.87-1.13) APTT 179.7 H* (24.2-36.6) Sec. CBC 03/24/19 Range/Units 05:31 WBC 5.2 (4.5-11.0) K/mm3 RBC 3.55 L (3.65-5.03) M/mm3 Hgb 10.4 (10.1-14.3) gm/dl Hct 30.0 L (30.3-42.9) % Plt Count 154 (140-440) K/mm3 Lymph # 0.6 L (1.2-5.4) K/mm3 [place] # 0.5 (0.0-0.8) K/mm3 Eos # 0.2 (0.0-0.4) K/mm3 Baso # 0.0 (0.0-0.1) K/mm3 Comprehensive Metabolic Panel 03/24/19 Range/Units 05:31 Sodium 138 (137-145) mmol/L Potassium 4.3 (3.6-5.0) mmol/L Chloride 101.9 (98-107) mmol/L Carbon Dioxide 25 (22-30) mmol/L BUN 36 H (7-17) mg/dL Creatinine 1.9 H (0.7-1.2) mg/dL Glucose 248 H (65-100) mg/dL Calcium 8.4 (8.4-10.2) mg/dL
[2019-03-24] MEDS ORDERED: LEVAQUIN 750MG/150ML 750 MG/150 ML BAG IV SCH (13:00)
[2019-03-24] MEDS: PROTONIX PO SCH (13:35)
[2019-03-24] MEDS: LEVAQUIN 750MG/150ML 750 MG/150 ML BAG IV SCH (13:37)
--- NOTE | 2019-03-24 17:20 | Progress Note ---
Assessment and Plan - Patient Problems (1) Acute kidney injury Current Visit: Yes Status: Acute Plan to address problem: Acute kidney injury possibly prerenal azotemia secondary to hemodynamic instability with elevated blood pressure on presentation which decreased thereafter. Kidney function is worsening. Patient received Toradol which can cause NSAID induced nephropathy. It has been stopped. Follow-up electrolytes and renal function. (2) Chronic kidney disease, stage 3 (moderate) Current Visit: Yes Status: Acute Plan to address problem: Chronic kidney disease presumably secondary to diabetic nephropathy/hypertensive nephrosclerosis. Definitely concerned about diabetic nephropathy especially with the history of diabetic retinopathy (3) Type 2 diabetes mellitus with diabetic chronic kidney disease Current Visit: Yes Status: Acute Plan to address problem: Blood sugar management by primary attending (4) Hypertensive chronic kidney disease with stage 1 through stage 4 chronic kidney disease, or unspecified chronic kidney disease Current Visit: Yes Status: Acute Plan to address problem: Follow blood pressure on current medications (5) Anemia in chronic kidney disease (CKD) Current Visit: Yes Status: Acute Plan to address problem: Follow-up hemoglobin. Get anemia profile if hemoglobin decreases less than 10 g/dL. (6) Neuropathy due to type 2 diabetes mellitus Current Visit: Yes Status: Acute Plan to address problem: Patient is being restarted on Lyrica (7) Chest pain Current Visit: Yes Status: Acute Plan to address problem: Atypical chest pain -management per Patient Care. Subjective Date of service: 03/24/19 Principal diagnosis: acute kidney injury, chest pain Interval history: Patient seen lying in bed. Still has chest pain worse on deep breathing and coughing. Talking also causes tightness. No nausea or vomiting. Shortness of breath improving. Still coughing but it some productive. Also complains of burning in her feet which is now extending to lower legs. Her neuropathy is flaring up Objective - Exam Narrative Exam: Middle-aged -[place]ones[place] female lying in bed in no acute distress HEENT: NCAT, pink oral mucous membrane Neck: Supple, no venous distention CVS: S1S2 RRR with no murmur, rub or gallop Chest: Clear to auscultation but breath sounds diminished in the lower zones Abdomen: Protuberant, soft, nontender, no organomegaly, bowel sounds are present Extremities: No edema, status post left fifth toe amputation Genitourinary deferred Psychiatry flat affect Neuro: Awake, alert no focal deficits - Vital Signs Vital signs: Vital Signs - 12hr 03/24/19 03/24/19 03/24/19 06:06 06:36 08:01 Temperature 98.1 F Pulse Rate Respiratory 18 18 18 Rate Blood Pressure 137/78 O2 Sat by Pulse Oximetry 03/24/19 03/24/19 03/24/19 09:15 09:31 09:33 Temperature Pulse Rate 82 83 82 Respiratory Rate Blood Pressure 145/78 145/78 145/78 O2 Sat by Pulse 96 Oximetry 03/24/19 03/24/19 03/24/19 10:00 11:33 13:35 Temperature Pulse Rate 72 Respiratory 17 16 Rate Blood Pressure 153/77 O2 Sat by Pulse 98 97 Oximetry - Lab 03/24/19 05:31 03/24/19 05:31 Most recent lab results Calcium 8.4 mg/dL (8.4-10.2) 03/24/19 05:31 Urine Creatinine 252.2 mg/dL (0.1-20.0) H 03/24/19 Unknown Urine Sodium 23 mmol/L 03/24/19 Unknown Urine Total Protein 83 mg/dL (5-11.8) H 03/24/19 Unknown Medications & Allergies - Medications Allergies/Adverse Reactions: Allergies Penicillins Allergy (Verified 01/09/17 19:07) Anaphylaxis Home Medications: Home Medications Medication Instructions Recorded Confirmed Last Taken Type Amlodipine Besylate [Norvasc] 10 mg PO DAILY 03/22/19 03/22/19 Unknown History Atorvastatin Calcium [Lipitor] 1 tab PO DAILY 03/22/19 03/22/19 Unknown History Furosemide [Lasix TAB] 1 tab PO DAILY 03/22/19 03/22/19 Unknown History Insulin Glargine [Lantus VIAL] 10 units SQ QHS 03/22/19 03/22/19 Unknown History Insulin Lispro [Humalog Kwikpen 200 unit SQ ACHS 03/22/19 03/22/19 Unknown History [id number]] Metoprolol [Lopressor] 100 mg PO DAILY 03/22/19 03/22/19 Unknown History Active Medications: Generic Name Dose Route Start Last Admin Trade Name Freq PRN Reason Stop Dose Admin Acetaminophen 650 mg 03/23/19 00:44 Tylenol PO Q4H PRN Pain MILD(1-3)/Fever >100.5/MIGUEL Al Hydrox/Mg Hydrox/Simethicone 15 ml 03/23/19 17:36 Alum-Mag Hydrox-Simeth 070-688-83lf/5ml PO Q4H PRN Indigestion Amlodipine Besylate 10 mg 03/23/19 10:00 03/24/19 09:33 Norvasc PO 10 mg DAILY SHELLY Administration Aspirin 81 mg 03/25/19 10:00 Halfprin Ec PO QDAY SHELLY Atorvastatin Calcium 40 mg 03/23/19 10:00 03/24/19 09:33 Lipitor PO 40 mg DAILY SHELLY Administration Benzonatate 100 mg 03/23/19 06:00 03/24/19 13:35 Tessalon Perles PO 100 mg Q8HR SHELLY Administration Dextrose 50 ml 03/23/19 00:32 D50w (25gm) Syringe IV PRN PRN Hypoglycemia Docusate Sodium 100 mg 03/23/19 10:00 03/24/19 09:33 Colace PO 100 mg BID SHELLY Administration Enoxaparin Sodium 40 mg 03/24/19 22:00 Lovenox SUB-Q QDAY@2200 SHELLY Furosemide 20 mg 03/23/19 10:00 03/24/19 09:33 Lasix PO 20 mg DAILY SHELLY Administration Hydralazine HCl 10 mg 03/23/19 00:32 Apresoline IV Q4H PRN BP >160/100 Levofloxacin/Dextrose 750 mg in 150 mls @ 100 mls/hr 03/24/19 14:00 03/24/19 13:37 Levaquin 750mg/150ml IV 100 mls/hr Q48H SHELLY Administration Protocol Insulin Glargine 10 units 03/23/19 22:00 03/23/19 21:47 Lantus SUB-Q 10 units QHS SHELLY Administration Insulin Human Lispro 0 unit 03/23/19 07:30 03/24/19 11:45 Humalog SUB-Q 3 unit ACHS SHELLY Administration Protocol Metoclopramide HCl 5 mg 03/23/19 01:41 Reglan IV Q6H PRN Nausea And Vomiting Metoprolol Succinate 100 mg 03/25/19 10:00 Toprol Xl PO QDAY [facility] Morphine Sulfate 2 mg 03/23/19 00:44 03/23/19 02:09 Morphine IV 2 mg Q4H PRN Administration Pain, Moderate (4-6) Ondansetron HCl 4 mg 03/23/19 00:44 03/23/19 14:04 Zofran IV 4 mg Q6H PRN Administration Nausea And Vomiting Pantoprazole Sodium 40 mg 03/24/19 14:00 03/24/19 13:35 Protonix PO 40 mg QDAY SHELLY Administration Sodium Chloride 10 ml 03/23/19 10:00 03/24/19 09:32 Sodium Chloride Flush Syringe 10 Ml IV 10 ml BID SHELLY Administration Sodium Chloride 10 ml 03/23/19 00:44 Sodium Chloride Flush Syringe 10 Ml IV PRN PRN LINE FLUSH
--- NOTE | 2019-03-24 19:18 | Progress Note ---
Assessment and Plan Assessment and plan: --Unstable angina aspirin, EKG no acute ST changes, chest x-ray neg, troponins negative so far, serial CE, cardiology following.Continue heparin drip, cardiac medications. --h/o CAD s/p CABG :Continue cardiac medications. 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 She denies history of chronic kidney disease, nephrology consult, avoid nephrotoxins --Hypertension; cont home meds,Moderate control --Diabetes Consistent carbohydrate diet, sliding scale insulin, check A1c Insulin as needed --History of DVT elevated d-dimer,Ck VQ scan DVT prophylaxis; Lovenox Follow cardiology recommendations Follow VQ scan Disposition; continue current management Discharge when medically stable History Interval history: Patient seen and examined medical records reviewed Admitted with unstable angina has history of coronary artery disease status post CABG Cardiology evaluated the patient, recommend CT chest without contrast And possible stress test tomorrow. Hospitalist Physical - Constitutional Vitals: Temp Pulse Resp BP Pulse Ox 98.1 F 72 17 153/77 97 03/24/19 08:01 03/24/19 11:33 03/24/19 14:30 03/24/19 11:33 03/24/19 11:33 General appearance: Present: no acute distress, well-nourished - EENT Eyes: Present: PERRL, EOM intact - Neck Neck: Present: supple, normal ROM - Respiratory Respiratory effort: normal Respiratory: bilateral: diminished, negative: rales, rhonchi, wheezing - Cardiovascular Rhythm: regular Heart Sounds: Present: S1 & S2 - Extremities Extremities: no ischemia, No edema - Abdominal General gastrointestinal: soft, non-tender, non-distended, normal bowel sounds - Integumentary Integumentary: Present: clear, warm - Psychiatric Psychiatric: appropriate mood/affect, cooperative - Neurologic Neurologic: CNII-XII intact, moves all extremities Results - Labs CBC & Chem 7: 03/25/19 06:51 03/25/19 06:51 Labs: Laboratory Last Values WBC 5.2 K/mm3 (4.5-11.0) 03/24/19 05:31 RBC 3.55 M/mm3 (3.65-5.03) L 03/24/19 05:31 Hgb 10.4 gm/dl (10.1-14.3) 03/24/19 05:31 Hct 30.0 % (30.3-42.9) L 03/24/19 05:31 MCV 85 fl (79-97) 03/24/19 05:31 MCH 29 pg (28-32) 03/24/19 05:31 MCHC 35 % (30-34) H 03/24/19 05:31 RDW 13.1 % (13.2-15.2) L 03/24/19 05:31 Plt Count 154 K/mm3 (140-440) 03/24/19 05:31 Lymph % (Auto) 12.2 % (13.4-35.0) L 03/24/19 05:31 Brooks % (Auto) 9.1 % (0.0-7.3) H 03/24/19 05:31 Eos % (Auto) 3.4 % (0.0-4.3) 03/24/19 05:31 Baso % (Auto) 0.5 % (0.0-1.8) 03/24/19 05:31 Lymph # 0.6 K/mm3 (1.2-5.4) L 03/24/19 05:31 Brooks # 0.5 K/mm3 (0.0-0.8) 03/24/19 05:31 Eos # 0.2 K/mm3 (0.0-0.4) 03/24/19 05:31 Baso # 0.0 K/mm3 (0.0-0.1) 03/24/19 05:31 Seg Neutrophils % 74.8 % (40.0-70.0) H 03/24/19 05:31 Seg Neutrophils # 3.9 K/mm3 (1.8-7.7) 03/24/19 05:31 PT 14.5 Sec. (12.2-14.9) 03/23/19 03:50 INR 1.16 (0.87-1.13) H 03/23/19 03:50 APTT 179.7 Sec. (24.2-36.6) H* 03/23/19 03:50 D-Dimer 479.09 ng/mlDDU (0-234) H 03/23/19 03:50 Heparin Anti-Xa Level < 0.10 U.I./ml (0.3-0.7) L 03/24/19 13:18 Sodium 138 mmol/L (137-145) 03/24/19 05:31 Potassium 4.3 mmol/L (3.6-5.0) 03/24/19 05:31 Chloride 101.9 mmol/L (98-107) 03/24/19 05:31 Carbon Dioxide 25 mmol/L (22-30) 03/24/19 05:31 Anion Gap 15 mmol/L 03/24/19 05:31 BUN 36 mg/dL (7-17) H 03/24/19 05:31 Creatinine 1.9 mg/dL (0.7-1.2) H 03/24/19 05:31 Estimated GFR 33 ml/min 03/24/19 05:31 BUN/Creatinine Ratio 19 % 03/24/19 05:31 Glucose 248 mg/dL (65-100) H 03/24/19 05:31 POC Glucose 287 (70-105) H 03/24/19 16:44 Hemoglobin A1c 7.9 % (4-6) H 03/23/19 03:50 Calcium 8.4 mg/dL (8.4-10.2) 03/24/19 05:31 Troponin T < 0.010 ng/mL (0.00-0.029) 03/23/19 00:22 NT-Pro-B Natriuret Pep 793.9 pg/mL (0-900) 03/22/19 22:40 Urine Color Yellow (Yellow) 03/24/19 Unknown Urine Turbidity Slightly-cloudy (Clear) 03/24/19 Unknown Urine pH 5.0 (5.0-7.0) 03/24/19 Unknown Ur Specific [place] 1.017 (1.003-1.030) 03/24/19 Unknown Urine Protein 100 mg/dl mg/dL (Negative) 03/24/19 Unknown Urine Glucose (UA) >=500 mg/dL (Negative) 03/24/19 Unknown Urine Ketones Neg mg/dL (Negative) 03/24/19 Unknown Urine Blood Sm (Negative) 03/24/19 Unknown Urine Nitrite Neg (Negative) 03/24/19 Unknown Urine Bilirubin Neg (Negative) 03/24/19 Unknown Urine Urobilinogen < 2.0 mg/dL (<2.0) 03/24/19 Unknown Ur Leukocyte Esterase Tr (Negative) 03/24/19 Unknown Urine WBC (Auto) 3.0 /HPF (0.0-6.0) 03/24/19 Unknown Urine RBC (Auto) 1.0 /HPF (0.0-6.0) 03/24/19 Unknown U Epithel Cells (Auto) 1.0 /HPF (0-13.0) 03/24/19 Unknown Urine Bacteria (Auto) 3+ /HPF (Negative) 03/24/19 Unknown Urine Mucus Few /HPF 03/24/19 Unknown Urine Creatinine 252.2 mg/dL (0.1-20.0) H 03/24/19 Unknown Urine Sodium 23 mmol/L 03/24/19 Unknown Urine Total Protein 83 mg/dL (5-11.8) H 03/24/19 Unknown Active Medications - Current Medications Current Medications: Generic Name Dose Route Start Last Admin Trade Name Freq PRN Reason Stop Dose Admin Acetaminophen 650 mg 03/23/19 00:44 Tylenol PO Q4H PRN Pain MILD(1-3)/Fever >100.5/MIGUEL Al Hydrox/Mg Hydrox/Simethicone 15 ml 03/23/19 17:36 Alum-Mag Hydrox-Simeth [id number]/5ml PO Q4H PRN Indigestion Amlodipine Besylate 10 mg 03/23/19 10:00 03/24/19 09:33 Norvasc PO 10 mg DAILY SHELLY Administration Aspirin 81 mg 03/25/19 10:00 Halfprin Ec PO QDAY SHELLY Atorvastatin Calcium 40 mg 03/23/19 10:00 03/24/19 09:33 Lipitor PO 40 mg DAILY SHELLY Administration Benzonatate 100 mg 03/23/19 06:00 03/24/19 13:35 Tessalon Perles PO 100 mg Q8HR SHELLY Administration Dextrose 50 ml 03/23/19 00:32 D50w (25gm) Syringe IV PRN PRN Hypoglycemia Docusate Sodium 100 mg 03/23/19 10:00 03/24/19 09:33 Colace PO 100 mg BID SHELLY Administration Enoxaparin Sodium 40 mg 03/24/19 22:00 Lovenox SUB-Q QDAY@2200 SHELLY Furosemide 20 mg 03/23/19 10:00 03/24/19 09:33 Lasix PO 20 mg DAILY SHELLY Administration Hydralazine HCl 10 mg 03/23/19 00:32 Apresoline IV Q4H PRN BP >160/100 Levofloxacin/Dextrose 750 mg in 150 mls @ 100 mls/hr 03/24/19 14:00 03/24/19 13:37 Levaquin 750mg/150ml IV 100 mls/hr Q48H SHELLY Administration Protocol Insulin Glargine 10 units 03/23/19 22:00 03/23/19 21:47 Lantus SUB-Q 10 units QHS SHELLY Administration Insulin Human Lispro 0 unit 03/23/19 07:30 03/24/19 11:45 Humalog SUB-Q 3 unit ACHS SHELLY Administration Protocol Metoclopramide HCl 5 mg 03/23/19 01:41 Reglan IV Q6H PRN Nausea And Vomiting Metoprolol Succinate 100 mg 03/25/19 10:00 Toprol Xl PO QDAY SHELLY Morphine Sulfate 2 mg 03/23/19 00:44 03/23/19 02:09 Morphine IV 2 mg Q4H PRN Administration Pain, Moderate (4-6) Ondansetron HCl 4 mg 03/23/19 00:44 03/23/19 14:04 Zofran IV 4 mg Q6H PRN Administration Nausea And Vomiting Pantoprazole Sodium 40 mg 03/24/19 14:00 03/24/19 13:35 Protonix PO 40 mg QDAY SHELLY Administration Sodium Chloride 10 ml 03/23/19 10:00 03/24/19 09:32 Sodium Chloride Flush Syringe 10 Ml IV 10 ml BID SHELLY Administration Sodium Chloride 10 ml 03/23/19 00:44 Sodium Chloride Flush Syringe 10 Ml IV PRN PRN LINE FLUSH Nutrition/Malnutrition Assess - Dietary Evaluation Nutrition/Malnutrition Findings: Nutrition Notes Start: 03/23/19 11:07 Freq: Status: Active Protocol: Document 03/23/19 11:07 PS (Rec: 03/23/19 11:45 PS [id number]) Co-Sign 03/23/19 11:07 LM Nutrition Notes Need for Assessment generated from: MD Order,Education Initial or Follow up Assessment Current Diagnosis Acute Kidney Injury,Diabetes, Hypertension Current Diet NPO Labs/Tests 03/22 BUN 26 Creat. 1.7 Glu 287 03/23 A1C 7.9 Pertinent Medications Lasix Height 5 ft 9 in Weight 91.172 kg Usual Body Weight 93.64 kg [place] Body Weight (kg) 65.90 BMI 29.7 Intake Prior to Admission Good Weight change and time frame 2.468 kg intentional wt. loss in the past month. Weight Status Overweight Subjective/Other Information Consult for diet education. Pt . stated she was eating 75% of her meals at home [employer] due to a small decrease in appetite. Pt. is also trying to lose wt. to control DM. A1C was addressed and pt. stated it was lower than normal. Pt. stated she was taking medication at home. Pt. was open to education and took the Carbohydrate Counting with Diabetes handout. Burn Absent Trauma Absent Minimum of two criteria No #1 Nutrition Diagnosis Food and nutrition-related knowledge deficit Etiology pt. neeeding further diabetes education As Evidenced by Signs and Symptoms pt. A1C at 7.9% and Glu 287 Calculation Used for Recommendations Kcal/kg Nutrition Intervention Change Diet Order: Advance diet per MD order to Cardiac Consistent Carbohydrate Diet Teaching Recipient Patient Learning Readiness Good Teaching Methods Discussion,Handout Response to Teaching Verbalize understanding Education Handouts Provided Carbohydrate Counting with Diabetes Barriers to Learning No Barriers RD phone number provided Yes Patient aware of follow up options Yes Anticipated Discharge Needs: Cardiac Consistent Carbohydrate Diet Revisit per MD consult or patient Sign Off request:
[2019-03-24] MEDS: LOVENOX SUB-Q SCH (22:31)
[2019-03-24] MEDS: APRESOLINE IV PRN (22:33)
[2019-03-24] MEDS: LANTUS SUB-Q SCH (22:35)
[2019-03-24] MEDS: MORPHINE IV PRN (22:53)
[2019-03-25] MEDS: TESSALON PERLES PO SCH ×3 (05:55→21:58)
[2019-03-25 07:15] LABS: Hematocrit 27.2 % (30.3-42.9); Hemoglobin 9.7 gm/dl (10.1-14.3)
[2019-03-25 07:35] LABS: Calcium 8.9 mg/dL (8.4-10.2)
[2019-03-25] MEDS: APRESOLINE IV PRN (08:29)
[2019-03-25] MEDS: HumaLOG SUB-Q SCH ×4 (08:44→21:59)
[2019-03-25] MEDS: PROTONIX PO SCH (09:50)
[2019-03-25] MEDS: NORVASC PO SCH (09:50)
[2019-03-25] MEDS: TOPROL XL PO SCH (09:50)
[2019-03-25] MEDS: MORPHINE IV PRN (09:50)
[2019-03-25] MEDS: LASIX PO SCH (09:50)
[2019-03-25] MEDS: COLACE PO SCH ×2 (09:51→22:00)
[2019-03-25] MEDS: SODIUM CHLORIDE FLUSH SYRINGE 10 ML IV SCH ×2 (09:51→21:59)
[2019-03-25] MEDS: HALFPRIN EC PO SCH (09:51)
[2019-03-25] MEDS ORDERED: CITRATE OF MAGNESIA PO PRN (10:19)
--- NOTE | 2019-03-25 11:05 | Progress Note ---
Assessment and Plan - Pneumonia CXR showed left sided infiltrate Obtain blood an sputum Cx Continue iv Levaquin - RUQ abdominal pain Obtian US RUQ if nl - Chest pain Cardiac enzymes x 2 are noraml aspirin, EKG no acute ST changes, chest x-ray neg, troponins negative so far, serial CE, cardiology following. Continue heparin drip, cardiac medications. -h/o CAD s/p CABG x 4 in 2018 :Continue cardiac medications. 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 Cough. No fever Objective - Constitutional Vitals: Vital Signs - 12hr 03/24/19 03/24/19 03/25/19 22:53 23:12 03:50 Temperature 98.6 F 99.5 F Pulse Rate 88 89 Respiratory 18 20 20 Rate Blood Pressure 155/84 146/73 O2 Sat by Pulse 97 96 Oximetry 03/25/19 07:27 Temperature 97.8 F Pulse Rate 87 Respiratory 14 Rate Blood Pressure 182/83 O2 Sat by Pulse 96 Oximetry General appearance: Present: no acute distress, well-nourished - EENT Eyes: PERRL, EOM intact Ears: bilateral: normal - Neck Neck: supple, normal ROM - Respiratory Respiratory effort: normal Respiratory: bilateral: CTA - Cardiovascular Rhythm: regular Heart Sounds: Present: S1 & S2. Absent: gallop, rub Extremities: pulses intact, No edema, normal color, Full ROM - Gastrointestinal General gastrointestinal: Present: soft, non-tender, non-distended, normal bowel sounds - Genitourinary Female genitourinary: normal - Integumentary Integumentary: clear, warm, dry - Musculoskeletal Musculoskeletal: 1, strength equal bilaterally - Neurologic Neurologic: moves all extremities - Psychiatric Psychiatric: memory intact, appropriate mood/affect, intact judgment & insight - Labs CBC & Chem 7: 03/25/19 06:51 03/25/19 06:51 Labs: Abnormal lab results 03/24/19 03/24/19 03/24/19 Range/Units 11:39 13:18 16:44 Hgb (10.1-14.3) gm/dl Hct (30.3-42.9) % Heparin Anti-Xa Level < 0.10 L (0.3-0.7) U.I./ml BUN (7-17) mg/dL Creatinine (0.7-1.2) mg/dL Glucose (65-100) mg/dL POC Glucose 254 H 287 H (70-105) 03/24/19 03/25/19 03/25/19 Range/Units 20:26 06:51 06:51 Hgb 9.7 L (10.1-14.3) gm/dl Hct 27.2 L (30.3-42.9) % Heparin Anti-Xa Level (0.3-0.7) U.I./ml BUN 32 H (7-17) mg/dL Creatinine 1.8 H (0.7-1.2) mg/dL Glucose 136 H (65-100) mg/dL POC Glucose 392 H (70-105) 03/25/19 Range/Units 07:31 Hgb (10.1-14.3) gm/dl Hct (30.3-42.9) % Heparin Anti-Xa Level (0.3-0.7) U.I./ml BUN (7-17) mg/dL Creatinine (0.7-1.2) mg/dL Glucose (65-100) mg/dL POC Glucose 148 H (70-105)
--- NOTE | 2019-03-25 11:39 | Progress Note ---
Assessment and Plan Chest pain, musculoskeletal VQ scan reports a low probability for PE repeat CXR suggestive of left infiltrate Chronic renal failure Diabetes Hx of CAD with 4v CABG in 2018 Hypertension Continue medical therapy for coronary artery disease. Antiinflamatory medications If however patient continues to have chest pain will consider stress test Subjective Date of service: 03/25/19 Principal diagnosis: acute kidney injury, chest pain, RUQ pain Interval history: Still continues to have chest pain Objective Vital Signs Temp Pulse Resp BP Pulse Ox 03/25/19 07:27 97.8 F 87 14 182/83 96 03/25/19 03:50 99.5 F 89 20 146/73 96 03/24/19 23:12 98.6 F 88 20 155/84 97 03/24/19 22:53 18 03/24/19 22:33 82 184/64 03/24/19 19:48 80 03/24/19 19:25 98.4 F 82 20 184/64 96 03/24/19 14:30 17 03/24/19 13:35 16 - Physical Examination General: No Apparent Distress HEENT: Positive: PERRL, Normocephaly Neck: Positive: trachea midline Cardiac: Positive: Reg Rate and Rhythm, S1/S2 Lungs: Positive: Normal Exam Neuro: Positive: Grossly Intact Abdomen: Positive: Unremarkable Extremities: Present: normal. Absent: edema - Labs and Meds CBC 03/25/19 Range/Units 06:51 Hgb 9.7 L (10.1-14.3) gm/dl Hct 27.2 L (30.3-42.9) % Plt Count 150 (140-440) K/mm3 Comprehensive Metabolic Panel 03/25/19 Range/Units 06:51 Sodium 141 (137-145) mmol/L Potassium 3.9 (3.6-5.0) mmol/L Chloride 103.7 (98-107) mmol/L Carbon Dioxide 23 (22-30) mmol/L BUN 32 H (7-17) mg/dL Creatinine 1.8 H (0.7-1.2) mg/dL Glucose 136 H (65-100) mg/dL Calcium 8.9 (8.4-10.2) mg/dL
--- NOTE | 2019-03-25 12:47 | Progress Note ---
Assessment and Plan - Patient Problems (1) Acute kidney injury Current Visit: Yes Status: Acute Plan to address problem: Acute kidney injury possibly prerenal azotemia secondary to hemodynamic instability with elevated blood pressure on presentation which decreased thereafter. Kidney function is worsening. Patient received Toradol which can cause NSAID induced nephropathy. It has been stopped. Follow-up electrolytes and renal function. (2) Chronic kidney disease, stage 3 (moderate) Current Visit: Yes Status: Acute Plan to address problem: Chronic kidney disease presumably secondary to diabetic nephropathy/hypertensive nephrosclerosis. Definitely concerned about diabetic nephropathy especially with the history of diabetic retinopathy (3) Chest pain Current Visit: Yes Status: Acute Plan to address problem: Atypical chest pain -management per Shot Dropper. (4) Hypertensive chronic kidney disease with stage 1 through stage 4 chronic kidney disease, or unspecified chronic kidney disease Current Visit: Yes Status: Acute Plan to address problem: Follow blood pressure on current medications (5) Type 2 diabetes mellitus with diabetic chronic kidney disease Current Visit: Yes Status: Acute Plan to address problem: Blood sugar management by primary attending (6) Anemia in chronic kidney disease (CKD) Current Visit: Yes Status: Acute Plan to address problem: Follow-up hemoglobin. Get anemia profile if hemoglobin decreases less than 10 g/dL. (7) Neuropathy due to type 2 diabetes mellitus Current Visit: Yes Status: Acute Plan to address problem: Patient is being restarted on Lyrica Subjective Date of service: 03/25/19 Principal diagnosis: acute kidney injury, chest pain, RUQ pain Interval history: pt awake, alert, in NAD Objective - Vital Signs Vital signs: Vital Signs - 12hr 03/25/19 03/25/19 03:50 07:27 Temperature 99.5 F 97.8 F Pulse Rate 89 87 Respiratory 20 14 Rate Blood Pressure 146/73 182/83 O2 Sat by Pulse 96 96 Oximetry - General Appearance General appearance: well-developed, well-nourished, appears stated age EENT: ATNC, PERRL, mucous membranes moist Neck: no JVD Respiratory: Present: Clear to Ascultation Cardiology: regular, S1S2 Gastrointestinal: normoactive bowel sounds Integumentary: no rash, other (no edema ) Neurologic: no focal deficit, alert and oriented x3, strength 5/5, CN 3-12 intact Psychiatric: mood/affect appropriate, cooperative - Lab 03/25/19 06:51 03/25/19 06:51 Most recent lab results Calcium 8.9 mg/dL (8.4-10.2) 03/25/19 06:51 Magnesium 1.80 mg/dL (1.7-2.3) 03/25/19 06:51 Urine Creatinine 252.2 mg/dL (0.1-20.0) H 03/24/19 Unknown Urine Sodium 23 mmol/L 03/24/19 Unknown Urine Total Protein 83 mg/dL (5-11.8) H 03/24/19 Unknown Medications & Allergies - Medications Allergies/Adverse Reactions: Allergies Penicillins Allergy (Verified 01/09/17 19:07) Anaphylaxis Home Medications: Home Medications Medication Instructions Recorded Confirmed Last Taken Type Amlodipine Besylate [Norvasc] 10 mg PO DAILY 03/22/19 03/22/19 Unknown History Atorvastatin Calcium [Lipitor] 1 tab PO DAILY 03/22/19 03/22/19 Unknown History Furosemide [Lasix TAB] 1 tab PO DAILY 03/22/19 03/22/19 Unknown History Insulin Glargine [Lantus VIAL] 10 units SQ QHS 03/22/19 03/22/19 Unknown History Insulin Lispro [Humalog Kwikpen 200 unit SQ ACHS 03/22/19 03/22/19 Unknown History U-200] Metoprolol [Lopressor] 100 mg PO DAILY 03/22/19 03/22/19 Unknown History Active Medications: Generic Name Dose Route Start Last Admin Trade Name Freq PRN Reason Stop Dose Admin Acetaminophen 650 mg 03/23/19 00:44 Tylenol PO Q4H PRN Pain MILD(1-3)/Fever >100.5/MIGUEL Al Hydrox/Mg Hydrox/Simethicone 15 ml 03/23/19 17:36 Alum-Mag Hydrox-Simeth 476-474-63vz/5ml PO Q4H PRN Indigestion Amlodipine Besylate 10 mg 03/23/19 10:00 03/25/19 09:50 Norvasc PO 10 mg DAILY SHELLY Administration Aspirin 81 mg 03/25/19 10:00 03/25/19 09:51 Halfprin Ec PO 81 mg QDAY SHELLY Administration Atorvastatin Calcium 40 mg 03/23/19 10:00 03/25/19 09:50 Lipitor PO 40 mg DAILY SHELLY Administration Benzonatate 100 mg 03/23/19 06:00 03/25/19 05:55 Tessalon Perles PO 100 mg Q8HR SHELLY Administration Dextrose 50 ml 03/23/19 00:32 D50w (25gm) Syringe IV PRN PRN Hypoglycemia Docusate Sodium 100 mg 03/23/19 10:00 03/25/19 09:51 Colace PO 100 mg BID SHELLY Administration Enoxaparin Sodium 40 mg 03/24/19 22:00 03/24/19 22:31 Lovenox SUB-Q 40 mg QDAY@2200 SHELLY Administration Furosemide 20 mg 03/23/19 10:00 03/25/19 09:50 Lasix PO 20 mg DAILY SHELLY Administration Hydralazine HCl 10 mg 03/23/19 00:32 03/25/19 08:29 Apresoline IV 10 mg Q4H PRN Administration BP >160/100 Levofloxacin/Dextrose 750 mg in 150 mls @ 100 mls/hr 03/24/19 14:00 03/24/19 13:37 Levaquin 750mg/150ml IV 100 mls/hr Q48H [facility] Administration Protocol Insulin Glargine 10 units 03/23/19 22:00 03/24/19 22:35 Lantus SUB-Q 10 units QHS [facility] Administration Insulin Human Lispro 0 unit 03/23/19 07:30 03/25/19 08:44 Humalog SUB-Q Not Given ACHS [facility] Protocol Magnesium Citrate 300 ml 03/25/19 10:19 Citrate Of Magnesia PO QDAY PRN Bowel Movement Metoclopramide HCl 5 mg 03/23/19 01:41 Reglan IV Q6H PRN Nausea And Vomiting Metoprolol Succinate 100 mg 03/25/19 10:00 03/25/19 09:50 Toprol Xl PO 100 mg QDAY SHELLY Administration Morphine Sulfate 2 mg 03/23/19 00:44 03/25/19 09:50 Morphine IV 2 mg Q4H PRN Administration Pain, Moderate (4-6) Ondansetron HCl 4 mg 03/23/19 00:44 03/23/19 14:04 Zofran IV 4 mg Q6H PRN Administration Nausea And Vomiting Pantoprazole Sodium 40 mg 03/24/19 14:00 03/25/19 09:50 Protonix PO 40 mg QDAY SHELLY Administration Sodium Chloride 10 ml 03/23/19 10:00 03/25/19 09:51 Sodium Chloride Flush Syringe 10 Ml IV 10 ml BID SHELLY Administration Sodium Chloride 10 ml 03/23/19 00:44 Sodium Chloride Flush Syringe 10 Ml IV PRN PRN LINE FLUSH
--- NOTE | 2019-03-25 14:46 | Ultrasound Report ---
ULTRASOUND ABDOMEN, LIMITED (RIGHT UPPER QUADRANT) INDICATION: RUQ abdominal pain. COMPARISON: None available. FINDINGS: Pancreas: Visualized portion shows no significant abnormality. Liver: Normal. Gallbladder: Normal. Bile ducts: Normal. Common Bile Duct measures 2-3 mm. Free fluid: None. Additional Findings: None. IMPRESSION: 1. No sonographic abnormality of the right upper quadrant. Signer Name: Burak Flynn MD Signed: 03/25/2019 2:42 PM Workstation Name: [id number]
[2019-03-25] MEDS: LOVENOX SUB-Q SCH (21:59)
[2019-03-25] MEDS: LANTUS SUB-Q SCH (22:06)
[2019-03-26] MEDS: APRESOLINE IV PRN (05:41)
[2019-03-26] MEDS: TESSALON PERLES PO SCH ×3 (05:41→21:12)
[2019-03-26] MEDS: SODIUM CHLORIDE FLUSH SYRINGE 10 ML IV PRN ×2 (05:43→20:13)
[2019-03-26 06:29] LABS: Basophils % (Auto) 0.6 % (0.0-1.8); Eosinophils # (Auto) 0.1 K/mm3 (0.0-0.4); Eosinophils % (Auto) 2.3 % (0.0-4.3); Hematocrit 28.4 % (30.3-42.9); Lymphocytes # (Auto) 0.8 K/mm3 (1.2-5.4); Mean Corpuscular HGB Conc 35 % (30-34); Mean Corpuscular Volume 84 fl (79-97); Monocytes # (Auto) 0.5 K/mm3 (0.0-0.8); Platelet Count 167 K/mm3 (140-440); Red Cell Distribution Width 12.9 % (13.2-15.2)
[2019-03-26 06:55] LABS: Albumin 3.4 g/dL (3.9-5); Calcium 9.1 mg/dL (8.4-10.2)
--- NOTE | 2019-03-26 08:37 | Progress Note ---
Assessment and Plan - Pneumonia CXR showed left sided infiltrate Obtain blood an sputum Cx Continue iv Levaquin - RUQ abdominal pain Obtian US RUQ if nl Follow-up report of CT scan of abdomen and pelvis - Chest pain Cardiac enzymes x 2 are noraml aspirin, EKG no acute ST changes, chest x-ray neg, troponins negative so far, serial CE, cardiology following. No plans for any intervention. Medical management recommended by reclaimer -h/o CAD s/p CABG x 4 in 2018 :Continue cardiac medications. 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 No fever Objective - Exam Narrative Exam: Constitutional: Well-nourished well-developed. In no distress Head: Normocephalic atraumatic Eyes: Pupils are equal round and reactive to light Nose: No enlarged turbinates, no septal deviation. Mouth: Moist mucous membranes. Neck: Supple no thyromegaly. No bruit. No JVD Heart: Regular rate and rhythm, S1-S2 normal. No rubs murmurs or gallop Lungs: Clear to auscultation bilaterally. no rales or rhonchi Abdomen: Tender in the right upper quadrant and epigastric. Soft. Bowel sound are present. Extremities: No edema, no cyanosis, no clubbing. Neuro: Alert oriented Oriented x3. No focal sensory or motor deficit. Skin: No rashes or hyperpigmented spots Musculoskeletal system: No joint pain or swelling Hematological: No petechia or subcutanous hemorrhages. Immunological: No multiple septic spots on the skin Lymphatic: No generalized lymphadenopathy Psychiatry: Euthymic. Calm. - Constitutional Vitals: Vital Signs - 12hr 03/26/19 03/26/19 03/26/19 00:00 04:57 05:41 Temperature 98.6 F 98.2 F Pulse Rate 73 75 77 Respiratory 20 20 Rate Blood Pressure 170/82 Blood Pressure 139/72 170/82 [Right] O2 Sat by Pulse 98 99 Oximetry 03/26/19 06:37 Temperature Pulse Rate 78 Respiratory Rate Blood Pressure Blood Pressure 158/74 [Right] O2 Sat by Pulse Oximetry - Labs CBC & Chem 7: 03/26/19 05:49 03/26/19 05:49 Labs: Abnormal lab results 03/25/19 03/25/19 03/26/19 Range/Units 12:21 21:21 05:49 RBC 3.40 L (3.65-5.03) M/mm3 Hgb 10.0 L (10.1-14.3) gm/dl Hct 28.4 L (30.3-42.9) % MCHC 35 H (30-34) % RDW 12.9 L (13.2-15.2) % [place] % (Auto) 10.0 H (0.0-7.3) % Lymph # 0.8 L (1.2-5.4) K/mm3 Seg Neutrophils % 72.1 H (40.0-70.0) % BUN (7-17) mg/dL Creatinine (0.7-1.2) mg/dL Glucose (65-100) mg/dL POC Glucose 114 H 265 H (70-105) Alkaline Phosphatase (35-129) units/L Albumin (3.9-5) g/dL 03/26/19 Range/Units 05:49 RBC (3.65-5.03) M/mm3 Hgb (10.1-14.3) gm/dl Hct (30.3-42.9) % MCHC (30-34) % RDW (13.2-15.2) % [place] % (Auto) (0.0-7.3) % Lymph # (1.2-5.4) K/mm3 Seg Neutrophils % (40.0-70.0) % BUN 31 H (7-17) mg/dL Creatinine 1.8 H (0.7-1.2) mg/dL Glucose 128 H (65-100) mg/dL POC Glucose (70-105) Alkaline Phosphatase 134 H (35-129) units/L Albumin 3.4 L (3.9-5) g/dL
--- NOTE | 2019-03-26 09:21 | Progress Note ---
Assessment and Plan - Patient Problems (1) Acute kidney injury Current Visit: Yes Status: Acute Plan to address problem: Acute kidney injury possibly prerenal azotemia secondary to hemodynamic instability with elevated blood pressure on presentation which decreased thereafter. Patient received Toradol which can cause NSAID induced nephropathy. It has been stopped. stable renal function noted. Follow-up electrolytes and renal function. (2) Chronic kidney disease, stage 3 (moderate) Current Visit: Yes Status: Acute Plan to address problem: Chronic kidney disease presumably secondary to diabetic nephropathy/hypertensive nephrosclerosis. Definitely concerned about diabetic nephropathy especially with the history of diabetic retinopathy (3) Chest pain Current Visit: Yes Status: Acute Plan to address problem: Atypical chest pain -management per Dinkey Locomotive Engineer. (4) Hypertensive chronic kidney disease with stage 1 through stage 4 chronic kidney disease, or unspecified chronic kidney disease Current Visit: Yes Status: Acute Plan to address problem: Follow blood pressure on current medications (5) Type 2 diabetes mellitus with diabetic chronic kidney disease Current Visit: Yes Status: Acute Plan to address problem: Blood sugar management by primary attending (6) Anemia in chronic kidney disease (CKD) Current Visit: Yes Status: Acute Plan to address problem: Follow-up hemoglobin. Get anemia profile if hemoglobin decreases less than 10 g/dL. (7) Neuropathy due to type 2 diabetes mellitus Current Visit: Yes Status: Acute Subjective Date of service: 03/26/19 Principal diagnosis: acute kidney injury, chest pain, RUQ pain Interval history: pt awake, alert, in NAD Objective - Vital Signs Vital signs: Vital Signs - 12hr 03/26/19 03/26/19 03/26/19 00:00 00:22 04:33 Temperature 98.6 F 98.6 F 98.2 F Pulse Rate 73 76 76 Respiratory 20 20 20 Rate Blood Pressure 139/72 170/82 Blood Pressure 139/72 [Right] O2 Sat by Pulse 98 98 99 Oximetry 03/26/19 03/26/19 03/26/19 04:57 05:41 06:31 Temperature 98.2 F Pulse Rate 75 77 Respiratory 20 Rate Blood Pressure 170/82 158/74 Blood Pressure 170/82 [Right] O2 Sat by Pulse 99 Oximetry 03/26/19 06:37 Temperature Pulse Rate 78 Respiratory Rate Blood Pressure Blood Pressure 158/74 [Right] O2 Sat by Pulse Oximetry - General Appearance General appearance: well-developed, well-nourished, appears stated age EENT: ATNC, PERRL, mucous membranes moist Neck: no JVD Respiratory: Present: Clear to Ascultation Cardiology: regular, S1S2 Gastrointestinal: normoactive bowel sounds Integumentary: no rash, other (no edema ) Neurologic: no focal deficit, alert and oriented x3, strength 5/5, CN 3-12 intact Psychiatric: mood/affect appropriate, cooperative - Lab 03/26/19 05:49 03/26/19 05:49 Most recent lab results Calcium 9.1 mg/dL (8.4-10.2) 03/26/19 05:49 Magnesium 1.80 mg/dL (1.7-2.3) 03/25/19 06:51 Urine Creatinine 252.2 mg/dL (0.1-20.0) H 03/24/19 Unknown Urine Sodium 23 mmol/L 03/24/19 Unknown Urine Total Protein 83 mg/dL (5-11.8) H 03/24/19 Unknown Medications & Allergies - Medications Allergies/Adverse Reactions: Allergies Penicillins Allergy (Verified 01/09/17 19:07) Anaphylaxis Home Medications: Home Medications Medication Instructions Recorded Confirmed Last Taken Type Amlodipine Besylate [Norvasc] 10 mg PO DAILY 03/22/19 03/22/19 Unknown History Atorvastatin Calcium [Lipitor] 1 tab PO DAILY 03/22/19 03/22/19 Unknown History Furosemide [Lasix TAB] 1 tab PO DAILY 03/22/19 03/22/19 Unknown History Insulin Glargine [Lantus VIAL] 10 units SQ QHS 03/22/19 03/22/19 Unknown History Insulin Lispro [Humalog Kwikpen 200 unit SQ ACHS 03/22/19 03/22/19 Unknown History U-200] Metoprolol [Lopressor] 100 mg PO DAILY 03/22/19 03/22/19 Unknown History Active Medications: Generic Name Dose Route Start Last Admin Trade Name Freq PRN Reason Stop Dose Admin Acetaminophen 650 mg 03/23/19 00:44 Tylenol PO Q4H PRN Pain MILD(1-3)/Fever >100.5/MIGUEL Al Hydrox/Mg Hydrox/Simethicone 15 ml 03/23/19 17:36 Alum-Mag Hydrox-Simeth 150-514-55vh/5ml PO Q4H PRN Indigestion Amlodipine Besylate 10 mg 03/23/19 10:00 03/25/19 09:50 Norvasc PO 10 mg DAILY SHELLY Administration Aspirin 81 mg 03/25/19 10:00 03/25/19 09:51 Halfprin Ec PO 81 mg QDAY SHELLY Administration Atorvastatin Calcium 40 mg 03/23/19 10:00 03/25/19 09:50 Lipitor PO 40 mg DAILY SHELLY Administration Benzonatate 100 mg 03/23/19 06:00 03/26/19 05:41 Tessalon Perles PO 100 mg Q8HR SHE[facility] Administration Dextrose 50 ml 03/23/19 00:32 D50w (25gm) Syringe IV PRN PRN Hypoglycemia Docusate Sodium 100 mg 03/23/19 10:00 03/25/19 22:00 Colace PO Not Given BID SHELLY Enoxaparin Sodium 40 mg 03/24/19 22:00 03/25/19 21:59 Lovenox SUB-Q 40 mg QDAY@2200 SHELLY Administration Furosemide 20 mg 03/23/19 10:00 03/25/19 09:50 Lasix PO 20 mg DAILY SHELLY Administration Hydralazine HCl 10 mg 03/23/19 00:32 03/26/19 05:41 Apresoline IV 10 mg Q4H PRN Administration BP >160/100 Levofloxacin/Dextrose 750 mg in 150 mls @ 100 mls/hr 03/24/19 14:00 03/24/19 13:37 Levaquin 750mg/150ml IV 100 mls/hr Q48H SHELLY Administration Protocol Insulin Glargine 10 units 03/23/19 22:00 03/25/19 22:06 Lantus SUB-Q 10 units QHS SHELLY Administration Insulin Human Lispro 0 unit 03/23/19 07:30 03/25/19 21:59 Humalog SUB-Q 4 unit ACHS SHELLY Administration Protocol Magnesium Citrate 300 ml 03/25/19 10:19 03/25/19 17:30 Citrate Of Magnesia PO 300 ml QDAY PRN Administration Bowel Movement Metoclopramide HCl 5 mg 03/23/19 01:41 Reglan IV Q6H PRN Nausea And Vomiting Metoprolol Succinate 100 mg 03/25/19 10:00 03/25/19 09:50 Toprol Xl PO 100 mg QDAY SHELLY Administration Morphine Sulfate 2 mg 03/23/19 00:44 03/25/19 09:50 Morphine IV 2 mg Q4H PRN Administration Pain, Moderate (4-6) Ondansetron HCl 4 mg 03/23/19 00:44 03/23/19 14:04 Zofran IV 4 mg Q6H PRN Administration Nausea And Vomiting Pantoprazole Sodium 40 mg 03/24/19 14:00 03/25/19 09:50 Protonix PO 40 mg QDAY SHELLY Administration Sodium Chloride 10 ml 03/23/19 10:00 03/25/19 21:59 Sodium Chloride Flush Syringe 10 Ml IV 10 ml BID SHELLY Administration Sodium Chloride 10 ml 03/23/19 00:44 03/26/19 05:43 Sodium Chloride Flush Syringe 10 Ml IV 10 ml PRN PRN Administration LINE FLUSH
--- NOTE | 2019-03-26 09:23 | Cat Scan Report ---
CT CHEST WITHOUT CONTRAST INDICATION / CLINICAL INFORMATION: Chest Pain, left sided infiltrates on CXR. TECHNIQUE: Axial CT images were obtained through the chest without contrast. All CT scans at this location are p erformed using CT dose reduction for ALARA by means of automated exposure control. COMPARISON: No prior chest CT. Chest radiograph dated 03/24/19. FINDINGS: HEART: Mildly enlarged but stable. Previous median sternotomy. THORACIC AORTA: No significant abnormality. MEDIASTINUM and JOSE: Multiple mildly enlarged mediastinal lymph nodes which may be reactive. Left pa ratracheal node measures 2.1 cm in short axis. LUNGS: Patchy airspace disease in the anterior left upper lobe, medial segment of the right lower lob e, and in the left lung base. PLEURA: No significant pleural effusion. No pneumothorax. ADDITIONAL FINDINGS: None. UPPER ABDOMEN: No significant abnormality. SKELETAL SYSTEM: No significant abnormality. IMPRESSION: 1. Patchy, bilateral, multifocal pneumonia. 2. Mildly enlarged mediastinal lymph nodes which may be reactive. Signer Name: Thi Cardoza MD Signed: 03/26/2019 9:18 AM Workstation Name: [id number]
[2019-03-26] MEDS: HALFPRIN EC PO SCH (09:47)
[2019-03-26] MEDS: TOPROL XL PO SCH (09:47)
[2019-03-26] MEDS: COLACE PO SCH ×2 (09:48→21:16)
[2019-03-26] MEDS: LASIX PO SCH (09:48)
[2019-03-26] MEDS: NORVASC PO SCH (09:48)
[2019-03-26] MEDS: PROTONIX PO SCH (09:48)
[2019-03-26] MEDS: SODIUM CHLORIDE FLUSH SYRINGE 10 ML IV SCH ×2 (09:49→21:12)
[2019-03-26] MEDS: MORPHINE IV PRN ×2 (10:00→20:11)
[2019-03-26] MEDS: HumaLOG SUB-Q SCH ×4 (10:44→21:26)
--- NOTE | 2019-03-26 11:24 | Progress Note ---
Assessment and Plan Chest pain, musculoskeletal VQ scan reports a low probability for PE repeat CXR suggestive of left infiltrate Chronic renal failure Diabetes Hx of CAD with 4v CABG in 2018 Hypertension Continue medical therapy for coronary artery disease. Antiinflamatory medications patient continues to have chest pain proceed with stress test in AM Subjective Date of service: 03/26/19 Principal diagnosis: acute kidney injury, chest pain, RUQ pain Interval history: Still continues to have chest pain Objective Vital Signs Temp Pulse Resp BP BP Pulse Ox 03/26/19 09:48 130/62 03/26/19 09:47 130/62 03/26/19 06:37 78 158/74 03/26/19 06:31 158/74 03/26/19 05:41 77 170/82 03/26/19 04:57 98.2 F 75 20 170/82 99 03/26/19 04:33 98.2 F 76 20 170/82 99 03/26/19 00:22 98.6 F 76 20 139/72 98 03/26/19 00:00 98.6 F 73 20 139/72 98 03/25/19 20:19 74 03/25/19 19:35 98.5 F 74 16 140/72 96 03/25/19 19:15 98.0 F 75 18 148/70 96 03/25/19 16:56 98.6 F 74 14 142/81 97 03/25/19 12:10 76 154/75 94 - Physical Examination General: No Apparent Distress HEENT: Positive: PERRL, Normocephaly Neck: Positive: trachea midline Lungs: Positive: clear to auscultation Neuro: Positive: Grossly Intact Abdomen: Positive: Unremarkable Gait: Normal Gait Extremities: Present: normal. Absent: edema - Labs and Meds Cardiac Enzymes 03/26/19 Range/Units 05:49 AST 13 (5-40) units/L CBC 03/26/19 Range/Units 05:49 WBC 5.2 (4.5-11.0) K/mm3 RBC 3.40 L (3.65-5.03) M/mm3 Hgb 10.0 L (10.1-14.3) gm/dl Hct 28.4 L (30.3-42.9) % Plt Count 167 (140-440) K/mm3 Lymph # 0.8 L (1.2-5.4) K/mm3 [place] # 0.5 (0.0-0.8) K/mm3 Eos # 0.1 (0.0-0.4) K/mm3 Baso # 0.0 (0.0-0.1) K/mm3 Comprehensive Metabolic Panel 03/26/19 Range/Units 05:49 Sodium 142 (137-145) mmol/L Potassium 4.1 (3.6-5.0) mmol/L Chloride 102.6 (98-107) mmol/L Carbon Dioxide 23 (22-30) mmol/L BUN 31 H (7-17) mg/dL Creatinine 1.8 H (0.7-1.2) mg/dL Glucose 128 H (65-100) mg/dL Calcium 9.1 (8.4-10.2) mg/dL AST 13 (5-40) units/L ALT 13 (7-56) units/L Alkaline Phosphatase 134 H (35-129) units/L Total Protein 7.0 (6.3-8.2) g/dL Albumin 3.4 L (3.9-5) g/dL
[2019-03-26] MEDS: LEVAQUIN 750MG/150ML 750 MG/150 ML BAG IV SCH (13:43)
[2019-03-26] MEDS: ALUM-MAG HYDROX-SIMETH 200-200-20MG/5ML PO PRN (21:11)
[2019-03-26] MEDS: LOVENOX SUB-Q SCH (21:12)
[2019-03-26] MEDS: LANTUS SUB-Q SCH (21:26)
[2019-03-27] MEDS: TESSALON PERLES PO SCH ×3 (06:28→21:24)
[2019-03-27] MEDS ORDERED: LEXISCAN IV ONE ×2 (06:54→06:58)
[2019-03-27 07:37] LABS: Basophils % (Auto) 0.5 % (0.0-1.8); Eosinophils # (Auto) 0.1 K/mm3 (0.0-0.4); Hematocrit 30.1 % (30.3-42.9); Hemoglobin 10.5 gm/dl (10.1-14.3); Lymphocytes # (Auto) 0.9 K/mm3 (1.2-5.4); Lymphocytes % (Auto) 16.1 % (13.4-35.0); Mean Corpuscular HGB Conc 35 % (30-34); Mean Corpuscular Volume 84 fl (79-97); Monocytes # (Auto) 0.5 K/mm3 (0.0-0.8); Monocytes % (Auto) 9.4 % (0.0-7.3); Platelet Count 165 K/mm3 (140-440); Red Blood Count 3.57 M/mm3 (3.65-5.03); Red Cell Distribution Width 13.1 % (13.2-15.2)
[2019-03-27 07:47] LABS: Albumin 3.4 g/dL (3.9-5); Calcium 9.2 mg/dL (8.4-10.2)
[2019-03-27] MEDS: HumaLOG SUB-Q SCH ×4 (08:09→21:25)
--- NOTE | 2019-03-27 10:52 | Progress Note ---
Assessment and Plan - Pneumonia CXR showed left sided infiltrate Obtain blood an sputum Cx Continue iv Levaquin No Leukocytosis - RUQ abdominal pain Obtian US RUQ if nl Follow-up report of CT scan of abdomen and pelvis - Chest pain Cardiac enzymes x 2 are noraml aspirin, EKG no acute ST changes, chest x-ray neg, troponins negative so far, serial CE, cardiology following. Stress thallium test showed normal myocardial perfunction -h/o CAD s/p CABG x 4 in 2018 :Continue cardiac medications. 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 No fever Objective - Exam Narrative Exam: Constitutional: Well-nourished well-developed. In no distress Head: Normocephalic atraumatic Eyes: Pupils are equal round and reactive to light Nose: No enlarged turbinates, no septal deviation. Mouth: Moist mucous membranes. Neck: Supple no thyromegaly. No bruit. No JVD Heart: Regular rate and rhythm, S1-S2 normal. No rubs murmurs or gallop Lungs: Clear to auscultation bilaterally. no rales or rhonchi Abdomen: Tender in the right upper quadrant and epigastric. Soft. Bowel sound are present. Extremities: No edema, no cyanosis, no clubbing. Neuro: Alert oriented Oriented x3. No focal sensory or motor deficit. Skin: No rashes or hyperpigmented spots Musculoskeletal system: No joint pain or swelling Hematological: No petechia or subcutanous hemorrhages. Immunological: No multiple septic spots on the skin Lymphatic: No generalized lymphadenopathy Psychiatry: Euthymic. Calm. - Constitutional Vitals: Vital Signs - 12hr 03/26/19 03/27/19 03/27/19 23:44 04:05 08:56 Temperature 98.0 F 98.2 F Pulse Rate 68 70 79 Respiratory 18 18 Rate Blood Pressure 126/65 164/73 O2 Sat by Pulse 99 93 Oximetry - Labs CBC & Chem 7: 03/27/19 07:03 03/27/19 07:10 Labs: Abnormal lab results 03/26/19 03/26/19 03/26/19 Range/Units 11:06 17:05 21:16 RBC (3.65-5.03) M/mm3 Hct (30.3-42.9) % MCHC (30-34) % RDW (13.2-15.2) % [place] % (Auto) (0.0-7.3) % Lymph # (1.2-5.4) K/mm3 Seg Neutrophils % (40.0-70.0) % BUN (7-17) mg/dL Creatinine (0.7-1.2) mg/dL Glucose (65-100) mg/dL POC Glucose 210 H 144 H 142 H (70-105) Alkaline Phosphatase (35-129) units/L Albumin (3.9-5) g/dL 03/27/19 03/27/19 Range/Units 07:03 07:10 RBC 3.57 L (3.65-5.03) M/mm3 Hct 30.1 L (30.3-42.9) % MCHC 35 H (30-34) % RDW 13.1 L (13.2-15.2) % [place] % (Auto) 9.4 H (0.0-7.3) % Lymph # 0.9 L (1.2-5.4) K/mm3 Seg Neutrophils % 72.0 H (40.0-70.0) % BUN 32 H (7-17) mg/dL Creatinine 1.8 H (0.7-1.2) mg/dL Glucose 149 H (65-100) mg/dL POC Glucose (70-105) Alkaline Phosphatase 131 H (35-129) units/L Albumin 3.4 L (3.9-5) g/dL
[2019-03-27] MEDS: TOPROL XL PO SCH (11:13)
[2019-03-27] MEDS: PROTONIX PO SCH (11:14)
[2019-03-27] MEDS: NORVASC PO SCH (11:14)
[2019-03-27] MEDS: HALFPRIN EC PO SCH (11:14)
[2019-03-27] MEDS: COLACE PO SCH ×2 (11:14→21:26)
[2019-03-27] MEDS: LASIX PO SCH (11:14)
[2019-03-27] MEDS: SODIUM CHLORIDE FLUSH SYRINGE 10 ML IV SCH ×2 (11:15→21:24)
--- NOTE | 2019-03-27 12:15 | Event Note ---
Date: 03/27/19 Patient underwent a Lexiscan thallium stress test for atypical chest pain. The thallium images show a normal myocardial perfusion, and no defects identified, well-preserved left ventricle systolic function with ejection fraction 59% by gated SPECT.
--- NOTE | 2019-03-27 15:35 | Progress Note ---
Assessment and Plan - Patient Problems (1) Acute kidney injury superimposed on chronic kidney disease Current Visit: Yes Status: Acute Plan to address problem: Possibly pre-renal in etiology. Overall renal function has been stable. Avoid nephrotoxins, maintain MAP >65 mmHg. Renal US reviewed with evidence of CKD. Urine electrolytes/UA reviewed. (2) Chest pain Current Visit: Yes Status: Acute Plan to address problem: s/p NM stress test which did not show any acute abnormalities. further recommendations per cardiology. (3) Chronic kidney disease, stage 3 (moderate) Current Visit: Yes Status: Chronic Plan to address problem: Likely in the setting of DM and HTN. She needs to follow up with nephrology as an outpatient. Would recommend that she follows up as an outpatient within 2-3 weeks post discharge. (4) Hypertensive chronic kidney disease with stage 1 through stage 4 chronic kidney disease, or unspecified chronic kidney disease Current Visit: Yes Status: Chronic Plan to address problem: Will monitor blood pressures on current antihypertensive regimen. (5) Type 2 diabetes mellitus with diabetic chronic kidney disease Current Visit: Yes Status: Acute Qualifiers: Chronic kidney disease stage: stage 3 (moderate) Plan to address problem: DM management per primary attending. (6) Anemia in chronic kidney disease (CKD) Current Visit: Yes Status: Acute Qualifiers: Chronic kidney disease stage: stage 3 (moderate) Qualified Code(s): N18.3 - Chronic kidney disease, stage 3 (moderate); D63.1 - Anemia in chronic kidney disease Plan to address problem: Overall H/H levels are stable. Will continue to monitor. No acute indications for STEPHANIE therapy. Will need assessment of iron studies as an outpatient. Subjective Date of service: 03/27/19 Principal diagnosis: acute kidney injury, chest pain, RUQ pain Interval history: NM stress test was negative. Still complaining of intermittent pain located in the chest wall, which she describes as a muscle spasm. Renal function stable. Renal US does show evidence of CKD, likely in the setting of diabetes. Objective - Vital Signs Vital signs: Vital Signs - 12hr 03/27/19 03/27/19 03/27/19 04:05 08:35 08:46 Temperature 98.2 F Pulse Rate 70 Respiratory 18 Rate Blood Pressure 164/73 173/89 171/84 O2 Sat by Pulse 93 Oximetry 03/27/19 03/27/19 03/27/19 08:49 08:56 09:50 Temperature Pulse Rate 74 79 Respiratory Rate Blood Pressure 173/89 179/82 O2 Sat by Pulse Oximetry 03/27/19 03/27/19 03/27/19 09:52 09:53 09:54 Temperature Pulse Rate Respiratory Rate Blood Pressure 126/68 133/63 131/71 O2 Sat by Pulse Oximetry 03/27/19 03/27/19 03/27/19 09:55 09:56 09:57 Temperature Pulse Rate 108 H 104 H 92 H Respiratory Rate Blood Pressure 171/84 179/82 126/68 O2 Sat by Pulse Oximetry 03/27/19 03/27/19 03/27/19 09:58 09:59 10:00 Temperature Pulse Rate 95 H 95 H 102 H Respiratory Rate Blood Pressure 133/63 131/71 142/73 O2 Sat by Pulse Oximetry 03/27/19 11:14 Temperature Pulse Rate 84 Respiratory Rate Blood Pressure 187/92 O2 Sat by Pulse 96 Oximetry - General Appearance General appearance: well-developed, appears stated age EENT: ATNC, PERRL Neck: no JVD, no thyromegaly Respiratory: Present: Clear to Ascultation, Normal Exam Cardiology: regular, S1S2 Gastrointestinal: normal, normoactive bowel sounds Integumentary: no rash, warm and dry Neurologic: no focal deficit, no asterixis, alert and oriented x3 Psychiatric: mood/affect appropriate, cooperative - Lab 03/27/19 07:03 03/27/19 07:10 Most recent lab results Calcium 9.2 mg/dL (8.4-10.2) 03/27/19 07:10 Magnesium 1.80 mg/dL (1.7-2.3) 03/25/19 06:51 Urine Creatinine 252.2 mg/dL (0.1-20.0) H 03/24/19 Unknown Urine Sodium 23 mmol/L 03/24/19 Unknown Urine Total Protein 83 mg/dL (5-11.8) H 03/24/19 Unknown - Imaging Chest x-ray: pending - Allied health notes Allied health notes reviewed: nursing Medications & Allergies - Medications Allergies/Adverse Reactions: Allergies Penicillins Allergy (Verified 01/09/17 19:07) Anaphylaxis Home Medications: Home Medications Medication Instructions Recorded Confirmed Last Taken Type Amlodipine Besylate [Norvasc] 10 mg PO DAILY 03/22/19 03/22/19 Unknown History Atorvastatin Calcium [Lipitor] 1 tab PO DAILY 03/22/19 03/22/19 Unknown History Furosemide [Lasix TAB] 1 tab PO DAILY 03/22/19 03/22/19 Unknown History Insulin Glargine [Lantus VIAL] 10 units SQ QHS 03/22/19 03/22/19 Unknown History Insulin Lispro [Humalog Kwikpen 200 unit SQ ACHS 03/22/19 03/22/19 Unknown History U-200] Metoprolol [Lopressor] 100 mg PO DAILY 03/22/19 03/22/19 Unknown History Active Medications: Generic Name Dose Route Start Last Admin Trade Name Freq PRN Reason Stop Dose Admin Acetaminophen 650 mg 03/23/19 00:44 Tylenol PO Q4H PRN Pain MILD(1-3)/Fever >100.5/MIGUEL Al Hydrox/Mg Hydrox/Simethicone 15 ml 03/23/19 17:36 03/26/19 21:11 Alum-Mag Hydrox-Simeth 314-501-33zr/5ml PO 15 ml Q4H PRN Administration Indigestion Amlodipine Besylate 10 mg 03/23/19 10:00 03/27/19 11:14 Norvasc PO 10 mg DAILY SHELLY Administration Aspirin 81 mg 03/25/19 10:00 03/27/19 11:14 Halfprin Ec PO 81 mg QDAY SHELLY Administration Atorvastatin Calcium 40 mg 03/23/19 10:00 03/27/19 11:13 Lipitor PO 40 mg DAILY SHELLY Administration Benzonatate 100 mg 03/23/19 06:00 03/27/19 15:30 Tessalon Perles PO Not Given Q8HR SHELLY Dextrose 50 ml 03/23/19 00:32 D50w (25gm) Syringe IV PRN PRN Hypoglycemia Docusate Sodium 100 mg 03/23/19 10:00 03/27/19 11:14 Colace PO Not Given BID SHELLY Enoxaparin Sodium 40 mg 03/24/19 22:00 03/26/19 21:12 Lovenox SUB-Q 40 mg QDAY@2200 SHELLY Administration Furosemide 20 mg 03/23/19 10:00 03/27/19 11:14 Lasix PO 20 mg DAILY SHELLY Administration Hydralazine HCl 10 mg 03/23/19 00:32 03/26/19 05:41 Apresoline IV 10 mg Q4H PRN Administration BP >160/100 Levofloxacin/Dextrose 750 mg in 150 mls @ 100 mls/hr 03/24/19 14:00 03/26/19 13:43 Levaquin 750mg/150ml IV 100 mls/hr Q48H SHELLY Administration Protocol Insulin Glargine 10 units 03/23/19 22:00 03/26/19 21:26 Lantus SUB-Q Not Given QHS [facility] Insulin Human Lispro 0 unit 03/23/19 07:30 03/27/19 12:57 Humalog SUB-Q 2 unit ACHS [facility] Administration Protocol Magnesium Citrate 300 ml 03/25/19 10:19 03/25/19 17:30 Citrate Of Magnesia PO 300 ml QDAY PRN Administration Bowel Movement Metoclopramide HCl 5 mg 03/23/19 01:41 Reglan IV Q6H PRN Nausea And Vomiting Metoprolol Succinate 100 mg 03/25/19 10:00 03/27/19 11:13 Toprol Xl PO 100 mg QDAY SHELLY Administration Morphine Sulfate 2 mg 03/23/19 00:44 03/26/19 20:11 Morphine IV 2 mg Q4H PRN Administration Pain, Moderate (4-6) Ondansetron HCl 4 mg 03/23/19 00:44 03/23/19 14:04 Zofran IV 4 mg Q6H PRN Administration Nausea And Vomiting Pantoprazole Sodium 40 mg 03/24/19 14:00 03/27/19 11:14 Protonix PO 40 mg QDAY SHELLY Administration Sodium Chloride 10 ml 03/23/19 10:00 03/27/19 11:15 Sodium Chloride Flush Syringe 10 Ml IV Not Given BID SHELLY Sodium Chloride 10 ml 03/23/19 00:44 03/26/19 20:13 Sodium Chloride Flush Syringe 10 Ml IV 10 ml PRN PRN Administration LINE FLUSH
[2019-03-27] MEDS: LOVENOX SUB-Q SCH (21:24)
[2019-03-27] MEDS: LANTUS SUB-Q SCH (21:25)
--- NOTE | 2019-03-27 23:12 | Treadmill Report ---
THALLIUM STRESS TEST LEFT VENTRICLE: Left ventricular chamber size is within normal spread. Perfusion study demonstrates homogeneous uptake of the tracer in all segments, no significant defects identified. Normal apical thinning is noted. Gated analysis demonstrates normal left ventricular systolic function, ejection fraction 59%. CONCLUSION: Normal myocardial perfusion study. JOB# [id number] CA/NTS
[2019-03-28] MEDS: APRESOLINE IV PRN (04:05)
[2019-03-28] MEDS: TESSALON PERLES PO SCH ×2 (05:17→14:28)
[2019-03-28] MEDS: ALUM-MAG HYDROX-SIMETH 200-200-20MG/5ML PO PRN (05:21)
[2019-03-28 06:02] LABS: Basophils % (Auto) 0.5 % (0.0-1.8); Eosinophils # (Auto) 0.1 K/mm3 (0.0-0.4); Hemoglobin 10.4 gm/dl (10.1-14.3); Lymphocytes % (Auto) 16.8 % (13.4-35.0); Mean Corpuscular HGB Conc 35 % (30-34); Mean Corpuscular Volume 85 fl (79-97); Monocytes # (Auto) 0.5 K/mm3 (0.0-0.8); Platelet Count 193 K/mm3 (140-440); Red Blood Count 3.54 M/mm3 (3.65-5.03); Red Cell Distribution Width 12.9 % (13.2-15.2)
[2019-03-28 06:37] LABS: Albumin 3.2 g/dL (3.9-5)
[2019-03-28 08:18] VITALS: BP 144/65
[2019-03-28] MEDS: HumaLOG SUB-Q SCH ×3 (08:20→17:53)
[2019-03-28] MEDS: COLACE PO SCH (09:15)
[2019-03-28] MEDS: NORVASC PO SCH (09:16)
[2019-03-28] MEDS: HALFPRIN EC PO SCH (09:16)
[2019-03-28] MEDS: TOPROL XL PO SCH (09:16)
[2019-03-28] MEDS: PROTONIX PO SCH (09:16)
[2019-03-28] MEDS: LASIX PO SCH (09:16)
[2019-03-28] MEDS: SODIUM CHLORIDE FLUSH SYRINGE 10 ML IV SCH (09:17)
--- NOTE | 2019-03-28 09:50 | Progress Note ---
Assessment and Plan - Patient Problems (1) Acute kidney injury superimposed on chronic kidney disease Current Visit: Yes Status: Acute Plan to address problem: Possibly pre-renal in etiology. Overall renal function has been stable. Avoid nephrotoxins, maintain MAP >65 mmHg. Renal US reviewed with evidence of CKD. Urine electrolytes/UA reviewed. (2) Chest pain Current Visit: Yes Status: Acute Plan to address problem: s/p NM stress test which did not show any acute abnormalities. further recommendations per cardiology. (3) Chronic kidney disease, stage 3 (moderate) Current Visit: Yes Status: Chronic Plan to address problem: Likely in the setting of DM and HTN. She needs to follow up with nephrology as an outpatient. Would recommend that she follows up as an outpatient within 2-3 weeks post discharge. (4) Hypertensive chronic kidney disease with stage 1 through stage 4 chronic kidney disease, or unspecified chronic kidney disease Current Visit: Yes Status: Chronic Plan to address problem: Will monitor blood pressures on current antihypertensive regimen. (5) Type 2 diabetes mellitus with diabetic chronic kidney disease Current Visit: Yes Status: Acute Qualifiers: Chronic kidney disease stage: stage 3 (moderate) Plan to address problem: DM management per primary attending. (6) Anemia in chronic kidney disease (CKD) Current Visit: Yes Status: Acute Qualifiers: Chronic kidney disease stage: stage 3 (moderate) Qualified Code(s): N18.3 - Chronic kidney disease, stage 3 (moderate); D63.1 - Anemia in chronic kidney disease Plan to address problem: Overall H/H levels are stable. Will continue to monitor. No acute indications for STEPHANIE therapy. Will need assessment of iron studies as an outpatient. Subjective Date of service: 03/28/19 Principal diagnosis: acute kidney injury, chest pain, RUQ pain Interval history: No acute changes from renal standpoint. Objective - Vital Signs Vital signs: Vital Signs - 12hr 03/27/19 03/28/19 03/28/19 23:43 04:00 04:02 Temperature 98.4 F 98.3 F Pulse Rate 75 73 Pulse Rate [ Left Radial] Respiratory 18 18 Rate Blood Pressure 169/71 173/85 O2 Sat by Pulse 93 96 Oximetry 03/28/19 03/28/19 03/28/19 08:17 09:16 09:32 Temperature 97.7 F Pulse Rate 80 81 Pulse Rate [ 81 Left Radial] Respiratory 18 18 Rate Blood Pressure 144/65 144/65 O2 Sat by Pulse 99 96 Oximetry - General Appearance General appearance: well-developed, well-nourished, appears stated age EENT: ATNC, PERRL Neck: no JVD, no thyromegaly Respiratory: Present: Clear to Ascultation, Normal Exam Cardiology: regular, S1S2 Gastrointestinal: normal, normoactive bowel sounds Integumentary: no rash, warm and dry Neurologic: no focal deficit, alert and oriented x3 Psychiatric: mood/affect appropriate, cooperative - Lab 03/28/19 04:56 03/28/19 04:56 Most recent lab results Calcium 9.0 mg/dL (8.4-10.2) 03/28/19 04:56 Magnesium 1.80 mg/dL (1.7-2.3) 03/25/19 06:51 Urine Creatinine 252.2 mg/dL (0.1-20.0) H 03/24/19 Unknown Urine Sodium 23 mmol/L 03/24/19 Unknown Urine Total Protein 83 mg/dL (5-11.8) H 03/24/19 Unknown Medications & Allergies - Medications Allergies/Adverse Reactions: Allergies Penicillins Allergy (Verified 01/09/17 19:07) Anaphylaxis Home Medications: Home Medications Medication Instructions Recorded Confirmed Last Taken Type Amlodipine Besylate [Norvasc] 10 mg PO DAILY 03/22/19 03/22/19 Unknown History Atorvastatin Calcium [Lipitor] 1 tab PO DAILY 03/22/19 03/22/19 Unknown History Furosemide [Lasix TAB] 1 tab PO DAILY 03/22/19 03/22/19 Unknown History Insulin Glargine [Lantus VIAL] 10 units SQ QHS 03/22/19 03/22/19 Unknown History Insulin Lispro [Humalog Kwikpen 200 unit SQ ACHS 03/22/19 03/22/19 Unknown History U-200] Metoprolol [Lopressor] 100 mg PO DAILY 03/22/19 03/22/19 Unknown History Active Medications: Generic Name Dose Route Start Last Admin Trade Name Freq PRN Reason Stop Dose Admin Acetaminophen 650 mg 03/23/19 00:44 Tylenol PO Q4H PRN Pain MILD(1-3)/Fever >100.5/MIGUEL Al Hydrox/Mg Hydrox/Simethicone 15 ml 03/23/19 17:36 03/28/19 05:21 Alum-Mag Hydrox-Simeth 595-232-23wd/5ml PO 15 ml Q4H PRN Administration Indigestion Amlodipine Besylate 10 mg 03/23/19 10:00 03/28/19 09:16 Norvasc PO 10 mg DAILY SHELLY Administration Aspirin 81 mg 03/25/19 10:00 03/28/19 09:16 Halfprin Ec PO 81 mg QDAY SHELLY Administration Atorvastatin Calcium 40 mg 03/23/19 10:00 03/28/19 09:17 Lipitor PO 40 mg DAILY SHELLY Administration Benzonatate 100 mg 03/23/19 06:00 03/28/19 05:17 Tessalon Perles PO 100 mg Q8HR SHELLY Administration Dextrose 50 ml 03/23/19 00:32 D50w (25gm) Syringe IV PRN PRN Hypoglycemia Docusate Sodium 100 mg 03/23/19 10:00 03/28/19 09:15 Colace PO Not Given BID [facility] Enoxaparin Sodium 40 mg 03/24/19 22:00 03/27/19 21:24 Lovenox SUB-Q 40 mg QDAY@2200 SHELLY Administration Furosemide 20 mg 03/23/19 10:00 03/28/19 09:16 Lasix PO 20 mg DAILY [facility] Administration Hydralazine HCl 10 mg 03/23/19 00:32 03/28/19 04:05 Apresoline IV 10 mg Q4H PRN Administration BP >160/100 Levofloxacin/Dextrose 750 mg in 150 mls @ 100 mls/hr 03/24/19 14:00 03/26/19 13:43 Levaquin 750mg/150ml IV 100 mls/hr Q48H SHELLY Administration Protocol Insulin Glargine 10 units 03/23/19 22:00 03/27/19 21:25 Lantus SUB-Q 10 units QHS SHELLY Administration Insulin Human Lispro 0 unit 03/23/19 07:30 03/28/19 08:20 Humalog SUB-Q Not Given ACHS [facility] Protocol Magnesium Citrate 300 ml 03/25/19 10:03/25/19 17:30 Citrate Of Magnesia PO 300 ml QDAY PRN Administration Bowel Movement Metoclopramide HCl 5 mg 03/23/19 01:41 Reglan IV Q6H PRN Nausea And Vomiting Metoprolol Succinate 100 mg 03/25/19 10:00 03/28/19 09:16 Toprol Xl PO 100 mg QDAY SHELLY Administration Morphine Sulfate 2 mg 03/23/19 00:44 03/26/19 20:11 Morphine IV 2 mg Q4H PRN Administration Pain, Moderate (4-6) Ondansetron HCl 4 mg 03/23/19 00:44 03/23/19 14:04 Zofran IV 4 mg Q6H PRN Administration Nausea And Vomiting Pantoprazole Sodium 40 mg 03/24/19 14:00 03/28/19 09:16 Protonix PO 40 mg QDAY SHELLY Administration Sodium Chloride 10 ml 03/23/19 10:00 03/28/19 09:17 Sodium Chloride Flush Syringe 10 Ml IV 10 ml BID SHELLY Administration Sodium Chloride 10 ml 03/23/19 00:44 03/26/19 20:13 Sodium Chloride Flush Syringe 10 Ml IV 10 ml PRN PRN Administration LINE FLUSH
--- NOTE | 2019-03-28 11:13 | Progress Note ---
Assessment and Plan Chest pain, musculoskeletal VQ scan reports a low probability for PE Lexiscan thallium stress test show a normal myocardial perfusion well- preserved left ventricle systolic function with ejection fraction 59% by gated SPECT. Pneumonia Chronic renal failure Diabetes Hx of CAD with 4v CABG in 2018 Hypertension Continue medical therapy for coronary artery disease. Subjective Date of service: 03/28/19 Principal diagnosis: acute kidney injury, chest pain, RUQ pain Interval history: No interval changes. Objective Vital Signs Temp Pulse Pulse Resp BP Pulse Ox 03/28/19 09:32 81 18 96 03/28/19 09:16 81 144/65 03/28/19 08:17 97.7 F 80 18 144/65 99 03/28/19 04:02 98.3 F 18 173/85 03/28/19 04:00 73 96 03/27/19 23:43 98.4 F 75 18 169/71 93 03/27/19 20:40 75 03/27/19 19:32 98.8 F 74 19 150/81 97 03/27/19 15:57 72 154/79 97 03/27/19 11:14 84 187/92 96 - Physical Examination General: No Apparent Distress HEENT: Positive: PERRL Neck: Positive: trachea midline Cardiac: Positive: Reg Rate and Rhythm Lungs: Positive: Normal Breath Sounds Neuro: Positive: Grossly Intact Abdomen: Positive: Unremarkable Extremities: Absent: edema - Labs and Meds Cardiac Enzymes 03/28/19 Range/Units 04:56 AST 12 (5-40) units/L CBC 03/28/19 Range/Units 04:56 WBC 5.7 (4.5-11.0) K/mm3 RBC 3.54 L (3.65-5.03) M/mm3 Hgb 10.4 (10.1-14.3) gm/dl Hct 30.0 L (30.3-42.9) % Plt Count 193 (140-440) K/mm3 Lymph # 1.0 L (1.2-5.4) K/mm3 [place] # 0.5 (0.0-0.8) K/mm3 Eos # 0.1 (0.0-0.4) K/mm3 Baso # 0.0 (0.0-0.1) K/mm3 Comprehensive Metabolic Panel 03/28/19 Range/Units 04:56 Sodium 141 (137-145) mmol/L Potassium 4.1 (3.6-5.0) mmol/L Chloride 103.5 (98-107) mmol/L Carbon Dioxide 22 (22-30) mmol/L BUN 28 H (7-17) mg/dL Creatinine 1.7 H (0.7-1.2) mg/dL Glucose 145 H (65-100) mg/dL Calcium 9.0 (8.4-10.2) mg/dL AST 12 (5-40) units/L ALT 12 (7-56) units/L Alkaline Phosphatase 126 (35-129) units/L Total Protein 6.9 (6.3-8.2) g/dL Albumin 3.2 L (3.9-5) g/dL - Allied health notes Allied health notes reviewed: nursing
[2019-03-28] MEDS: LEVAQUIN 750MG/150ML 750 MG/150 ML BAG IV SCH (13:03)
--- NOTE | 2019-03-28 18:13 | Discharge Summary ---
Providers - Providers Date of Admission: 03/27/19 08:32 Date of discharge: 03/28/19 Attending physician: GARY WEINBERG 03/23/19 00:32 Consult to Dietitian/Nutrition [CONS] Routine Physician Instructions: Reason For Exam: Reason for Consult: Diet education 03/23/19 00:33 Consult to Physician [CONS] Routine Comment: Consulting Provider: JIMY MCGREGOR Physician Instructions: Reason For Exam: ckd vs WALT Hospitalization Condition: Fair Hospital course: A/p-- Chest pain, musculoskeletal VQ scan reports a low probability for PE Lexiscan thallium stress test show a normal myocardial perfusion well- preserved left ventricle systolic function with ejection fraction 59% by gated SPECT. Pneumonia--oral abx WALT-oral fluids Diabetes Hx of CAD with 4v CABG in 2018 Hypertension Continue medical therapy for coronary artery disease. Disposition: - TO HOME OR SELFCARE Core Measure Documentation - Palliative Care Palliative Care/ Comfort Measures: Not Applicable - Core Measures Any of the following diagnoses?: none Exam - Constitutional Vitals: Temp Pulse Resp BP Pulse Ox 97.7 F 76 18 144/65 96 03/28/19 08:17 03/28/19 10:00 03/28/19 09:32 03/28/19 09:16 03/28/19 09:32 General appearance: Present: no acute distress, well-nourished - EENT Eyes: Present: PERRL ENT: hearing intact, clear oral mucosa - Neck Neck: Present: supple, normal ROM - Respiratory Respiratory effort: normal Respiratory: bilateral: CTA - Cardiovascular Heart rate: 78 Rhythm: regular Heart Sounds: Present: S1 & S2. Absent: rub, click - Extremities Extremities: no ischemia, pulses intact, pulses symmetrical, No edema Peripheral Pulses: within normal limits - Abdominal General gastrointestinal: Present: soft, non-tender, non-distended, normal bowel sounds Female genitourinary: Present: normal - Integumentary Integumentary: Present: clear, warm, dry - Musculoskeletal Musculoskeletal: gait normal, strength equal bilaterally - Psychiatric Psychiatric: appropriate mood/affect, intact judgment & insight - Neurologic Neurologic: CNII-XII intact, moves all extremities - Allied Health Allied health notes reviewed: nursing, case management Plan Activity: no restrictions Diet: low fat, low cholesterol, low salt Follow up with: CORINNA,DIAZ [Other] - 7 Days SANDY HENDRIX MD [Staff Physician] - 7 Days VIVI DOMINGUEZ DO [Staff Physician] - 7 Days
== END 2019-03-28 19:58 | disposition home or self-care (01) | DRG 682 ==
LOC: ED 19:54 → 4A 03-23 00:44 → OBSVTOIN 03-27 08:32
PROVIDERS: ADMIT Internal Medicine; ATTEND Internal Medicine
DX: N17.9 Acute kidney failure, unspecified (principal); J18.9 Pneumonia, unspecified organism; I25.110 Atherosclerotic heart disease of native coronary artery with unstable angina pectoris; I13.0 Hypertensive heart and chronic kidney disease with heart failure and stage 1 through stage 4 chronic kidney disease, or unspecified chronic kidney disease; E11.22 Type 2 diabetes mellitus with diabetic chronic kidney disease; J45.909 Unspecified asthma, uncomplicated; N18.3 Chronic kidney disease, stage 3 (moderate); D63.1 Anemia in chronic kidney disease; I50.9 Heart failure, unspecified; E11.40 Type 2 diabetes mellitus with diabetic neuropathy, unspecified; E11.65 Type 2 diabetes mellitus with hyperglycemia; Z72.89 Other problems related to lifestyle; Z85.41 Personal history of malignant neoplasm of cervix uteri; Z95.1 Presence of aortocoronary bypass graft; Z79.899 Other long term (current) drug therapy; Z79.4 Long term (current) use of insulin; Z88.0 Allergy status to penicillin; Z86.718 Personal history of other venous thrombosis and embolism; Z82.49 Family history of ischemic heart disease and other diseases of the circulatory system; Z83.3 Family history of diabetes mellitus; Z82.3 Family history of stroke
CPT/HCPCS: 36415; 71045; 71250; 76705; 76770; 78452; 78582; 80048; 80053; 81001; 82570; 82962; 83036; 83735; 83880; 84156; 84300; 84484; 85014; 85018; 85025; 85049; 85379; 85520; 85610; 85730; 93005; 93010; 93017; 96374; G0378; A9270-GY; A9502; A9540; A9558; J0360; J1170; J1644; J1650; J1815; J1885; J1956; J2270; J2405; J2765; J2785; J7030